=== PATIENT | female | born 1975 | race Caucasian/White ===

== ENCOUNTER 2016-09-05 02:39 | Inpatient (IN) | payer MEDICAID, OTHER ==
[2016-09-05] MEDS ORDERED: SODIUM CHLORIDE 0.9% 1,000 ML IV STA (02:51)
[2016-09-05] MEDS ORDERED: ONDANSETRON 4 MG/2 ML VIAL IVP STA (02:51)
[2016-09-05] MEDS ORDERED: KETOROLAC 30 MG/ML 1 ML VIAL IVP STA (02:52)
--- NOTE | 2016-09-05 03:15 | ED ---
Nausea/Vomiting/Diarrhea HPI - General Source: patient, RN notes reviewed, old records reviewed Mode of arrival: EMS <Sussy Carrasquillo - Last Filed: 09/05/16 04:02> <Kalin Grossman - Last Filed: 09/05/16 06:17> - General Chief complaint: Nausea/Vomiting/Diarrhea Stated complaint: Nausea/Vomiting/Dizziness Time Seen by Provider: 09/05/16 02:42 - History of Present Illness Initial comments: This is a 40-year-old female presenting to the emergency department with chief complaint of severe nausea and vomiting and dizziness for the past 48 hours. Patient reports that she feels extremely ill. She denies any abdominal pain. She does report that she has some back pain. She denies any difficulty urinating or hematuria. She denies any changes in bowel movements including diarrhea or blood in her stools. She denies any blood in her emesis. Patient states that she is currently receiving methadone, states that she's been taking her medication as directed. She denies any other history of drug or alcohol use. Patient reports that she also is feeling suicidal. She reports that she feels extremely depressed because her committed suicide approximately a year ago. Patient denies any specific plan. (Sussy Carrasquillo) - Related Data Home Medications Medication Instructions Recorded Confirmed Gabapentin [Neurontin] 800 mg PO TID 01/02/16 01/04/16 Ibuprofen [Motrin] 800 mg PO TID 01/02/16 01/04/16 Methadone HCl [Methadone Intensol] 90 mg PO DAILY 01/02/16 01/04/16 Albuterol Inhaler [Ventolin Hfa 1 puff INHALATION RT-Q6H PRN 01/04/16 01/04/16 Inhaler] Sulfamethox-Tmp 800-160Mg [Bactrim 2 tab PO Q12HR 01/04/16 01/04/16 Ds] Previous Rx's Medication Instructions Recorded Naproxen 500 mg PO Q12HR PRN #30 tab 01/02/16 Allergies Allergy/AdvReac Type Severity Reaction Status Date / Time codeine Allergy Rash/Hives Verified 01/04/16 08:40 Penicillins Allergy Unknown Verified 01/04/16 08:40 Childhood Review of Systems ROS Other: All systems not noted in ROS Statement are negative. Constitutional: Denies: fever, chills Eyes: Denies: eye pain ENT: Denies: ear pain, throat pain Respiratory: Denies: cough, dyspnea Cardiovascular: Denies: chest pain Endocrine: Denies: fatigue Gastrointestinal: Denies: abdominal pain, nausea Genitourinary: Denies: urgency, dysuria Musculoskeletal: Reports: back pain Skin: Denies: rash, lesions Neurological: Reports: vertigo. Denies: headache Psychiatric: Reports: anxiety, depression, suicidal thoughts Hematological/Lymphatic: Denies: easy bleeding <Sussy Carrasquillo - Last Filed: 09/05/16 04:02> ROS Other: All systems not noted in ROS Statement are negative. <Kalin Grossman - Last Filed: 09/05/16 06:17> ROS Statement: Those systems with pertinent positive or pertinent negative responses have been documented in the HPI. Past Medical History Past Medical History: Asthma, COPD, Fibromyalgia Additional Past Medical History / Comment(s): chronic back pain, anxiety, depressive disorder migraines, heroin use .,several accidental drug overdoses.hep c, IBS, KIDNEY STONE History of Any Multi-Drug Resistant Organisms: MRSA Date of last positivie culture/infection: 01/02/16 MDRO Source:: RIGHT ARM Past Surgical History: Section, Cholecystectomy, Orthopedic Surgery Additional Past Surgical History / Comment(s): d & c's, hand surg,rt wrist surg 3 years ago d/t fx has hardware, tubal ligation, hepatitus c Past Anesthesia/Blood Transfusion Reactions: Previous Problems w/ Anesthesia Additional Past Anesthesia/Blood Transfusion Reaction / Comment(s): unsure of the reaction, CLAUSTERPHOBIA Past Psychological History: ADD/ADHD, Anxiety, Depression, Panic Disorder Additional Psychological History / Comment(s): pt stated she is currently homeless-staying with friends, stated her killed himself 2 weeks ago. staed is depresssed but denies suicidal thougths.has loss of intrest, and has intermittent problems with sleep. Smoking Status: Current every day smoker Past Alcohol Use History: None Reported Additional Past Alcohol Use History / Comment(s): started smoking at age 13, smokes 1 ppd. Past Drug Use History: Heroin Additional Drug Use History / Comment(s): stated last used 3 months ago - Past Family History Mother Family Medical History: Cancer Father Additional Family Medical History / Comment(s): ETOH ABUSE <Sussy Carrasquillo - Last Filed: 09/05/16 04:02> General Exam General appearance: alert, in no apparent distress, other (Patient appears diaphoretic.) Head exam: Present: atraumatic, normocephalic, normal inspection Eye exam: Present: normal appearance, PERRL, EOMI. Absent: scleral icterus, conjunctival injection, periorbital swelling ENT exam: Present: normal exam, normal oropharynx (poor dentition), mucous membranes moist Neck exam: Present: normal inspection. Absent: tenderness, meningismus, lymphadenopathy Respiratory exam: Present: normal lung sounds bilaterally. Absent: respiratory distress, wheezes, rales, rhonchi, stridor Cardiovascular Exam: Present: regular rate, normal rhythm, normal heart sounds. Absent: systolic murmur, diastolic murmur, rubs, gallop, clicks GI/Abdominal exam: Present: soft, normal bowel sounds. Absent: distended, tenderness, guarding, rebound, rigid Extremities exam: Present: normal inspection, full ROM, normal capillary refill. Absent: tenderness, pedal edema, joint swelling, calf tenderness Back exam: Present: normal inspection Neurological exam: Present: alert, oriented X3, CN II-XII intact Psychiatric exam: Present: normal affect, normal mood Skin exam: Present: warm, dry, intact, normal color, diaphoretic. Absent: rash <Sussy Carrasquillo - Last Filed: 09/05/16 04:02> <Kalin Grossman - Last Filed: 09/05/16 06:17> - General Exam Comments Initial Comments: Ill-appearing 40-year-old female. Patient is actively vomiting. (Sussy Carrasquillo) Course <Sussy Carrasquillo - Last Filed: 09/05/16 04:02> <Kalin Grossman - Last Filed: 09/05/16 06:17> Vital Signs 09/05/16 09/05/16 09/05/16 02:43 04:19 04:23 Temperature 96.7 F L Pulse Rate 68 58 L Respiratory 20 18 Rate Blood Pressure 151/77 117/72 O2 Sat by Pulse 100 96 Oximetry 09/05/16 05:37 Temperature Pulse Rate 51 L Respiratory 18 Rate Blood Pressure 141/74 O2 Sat by Pulse 95 Oximetry - Reevaluation(s) Reevaluation #1: 09/05/16 03:31 Patient is reevaluated at this time after receiving nausea medication. Patient reports she is feeling slightly better. She states that she is continued to feel suicidal. She states that her life is worthless at this time. She denies any specific plan, however she did tell the nurse that last week she took a bunch of pills. She states that she did not do this today. She reports that last week when she took the pills she did not want to be seen afterward. ( Sussy Carrasquillo) 09/05/16 04:52 Patient reevaluated and resting comfortably in bed. Patient feels much better. Abdomen is soft and nontender. Patient is medically clear for psychiatric evaluation. (Kalin Grossman) Medical Decision Making - Lab Data Result diagrams: 09/05/16 03:10 09/05/16 03:10 <Sussy Carrasquillo - Last Filed: 09/05/16 04:02> - Lab Data Result diagrams: 09/05/16 03:10 09/05/16 03:10 <Kalin Grossman - Last Filed: 09/05/16 06:17> - Medical Decision Making patient was seen by mental health services, who will admit. (Kalin Grossman) - Lab Data Lab Results 09/05/16 09/05/16 09/05/16 Range/Units 03:10 03:10 03:10 WBC 8.0 (3.8-10.6) k/uL RBC 5.22 (3.80-5.40) m/uL Hgb 15.3 (11.4-16.0) gm/dL Hct 46.1 H (34.0-46.0) % MCV 88.4 (80.0-100.0) fL MCH 29.3 (25.0-35.0) pg MCHC 33.2 (31.0-37.0) g/dL RDW 12.9 (11.5-15.5) % Plt Count 234 (150-450) k/uL Neutrophils % 57 % Lymphocytes % 31 % Monocytes % 7 % Eosinophils % 2 % Basophils % 1 % Neutrophils # 4.6 (1.3-7.7) k/uL Lymphocytes # 2.5 (1.0-4.8) k/uL Monocytes # 0.5 (0-1.0) k/uL Eosinophils # 0.2 (0-0.7) k/uL Basophils # 0.1 (0-0.2) k/uL Sodium 141 (137-145) mmol/L Potassium 3.6 (3.5-5.1) mmol/L Chloride 106 (98-107) mmol/L Carbon Dioxide 26 (22-30) mmol/L Anion Gap 9 mmol/L BUN 9 (7-17) mg/dL Creatinine 0.70 (0.52-1.04) mg/dL Est GFR (MDRD) Af Amer >60 (>60 ml/min/1.73 sqM) Est GFR (MDRD) Non-Af >60 (>60 ml/min/1.73 sqM) Glucose 134 H (74-99) mg/dL Calcium 9.6 (8.4-10.2) mg/dL Total Bilirubin 0.7 (0.2-1.3) mg/dL AST 33 (14-36) U/L ALT 41 (9-52) U/L Alkaline Phosphatase 74 (38-126) U/L Troponin I <0.012 (0.000-0.034) ng/mL Total Protein 8.1 (6.3-8.2) g/dL Albumin 4.1 (3.5-5.0) g/dL Amylase 38 (30-110) U/L Lipase 37 (23-300) U/L 09/05/16 03:16 EKG shows sinus bradycardia ventricular 56 bpm. : 30 ms. QRS duration 92 ms. QT QTc is 474/457 seconds. No evidence of ST elevation or T-wave inversion. No evidence of ventricular arrhythmias. ( Sussy Carrasquillo) Disposition <Sussy Carrasquillo - Last Filed: 09/05/16 04:02> <Kalin Grossman - Last Filed: 09/05/16 06:17> Clinical Impression: Acute vomiting, Depression, Suicidal thoughts Disposition: TRANSFER TO PSYCH HOSP/UNIT
[2016-09-05 03:16] LABS: Basophils # (A) 0.1 k/uL (0-0.2); Basophils % (A) 1 %; CH 30.2; CHCM 34.3; Eosinophils # (A) 0.2 k/uL (0-0.7); Eosinophils % (A) 2 %; HCT 46.1 % (34.0-46.0); HDW 2.48; HGB 15.3 gm/dL (11.4-16.0); Luc # (Auto) 0.24; Luc % (Auto) 3; Lymphocytes # (A) 2.5 k/uL (1.0-4.8); Lymphocytes % (A) 31 %; MCH 29.3 pg (25.0-35.0); MCHC 33.2 g/dL (31.0-37.0); MCV 88.4 fL (80.0-100.0); Mean Platelet Volume 7.1; Monocytes # (A) 0.5 k/uL (0-1.0); Monocytes % (A) 7 %; Neutrophils # (A) 4.6 k/uL (1.3-7.7); Neutrophils % (A) 57 %; RBC 5.22 m/uL (3.80-5.40); RDW 12.9 % (11.5-15.5); WBC (Perox) 7.02
[2016-09-05] MEDS: SODIUM CHLORIDE 0.9% 2,000 ML IV STA (03:17)
[2016-09-05 03:25] LABS: ALT 41 U/L (9-52); AST 33 U/L (14-36); Alkaline Phosphatase 74 U/L (38-126); Amylase 38 U/L (30-110); Anion Gap 9 mmol/L; Blood Urea Nitrogen 9 mg/dL (7-17); Calcium 9.6 mg/dL (8.4-10.2); Carbon Dioxide 26 mmol/L (22-30); Chloride 106 mmol/L (98-107); Glucose 134 mg/dL (74-99); Non-African American GFR(MDRD) >60 (>60 ml/min/1.73 sqM); Potassium 3.6 mmol/L (3.5-5.1); Sodium 141 mmol/L (137-145); Total Bilirubin 0.7 mg/dL (0.2-1.3); Total Protein 8.1 g/dL (6.3-8.2)
[2016-09-05] MEDS ORDERED: METOCLOPRAMIDE 5 MG/ML 2 ML VIAL IVP STA (03:57)
[2016-09-05] MEDS ORDERED: diphenhydrAMINE 50 MG/ML 1 ML VIAL IVP STA (03:58)
--- NOTE | 2016-09-05 04:03 | XR ---
EXAM: XR Chest, 2 Views CLINICAL HISTORY: Reason: pain TECHNIQUE: Frontal and lateral views of the chest. COMPARISON: 03/30/2014 FINDINGS: Lungs: Unremarkable. No consolidation. Pleural space: Unremarkable. No pneumothorax. Heart: Unremarkable. No cardiomegaly. Mediastinum: Unremarkable. Bones/joints: No acute osseous abnormality. Tubes, lines and devices: Telemetry leads overlie the patient. IMPRESSION: No acute cardiopulmonary process.
--- NOTE | 2016-09-05 04:04 | XR ---
EXAM: XR Abdomen, 1 View CLINICAL HISTORY: Reason: pain TECHNIQUE: Frontal supine view of the abdomen/pelvis. COMPARISON: No relevant prior studies available. FINDINGS: Intraperitoneal space: No pneumatosis or pneumoperitoneum. Gastrointestinal tract: Overall paucity of bowel gas. Gas is present in the rectosigmoid colon. No dilation. Bones/joints: No acute fracture or malalignment. Soft tissues: Surgical clips project over the right upper quadrant. IMPRESSION: Nonspecific bowel gas pattern. No pneumatosis or pneumoperitoneum.
[2016-09-05] MEDS ORDERED: MECLIZINE 25 MG TAB PO STA (06:09)
[2016-09-05] MEDS ORDERED: ACETAMINOPHEN TAB 325 MG TAB PO PRN (07:12)
[2016-09-05] MEDS ORDERED: MAGNESIUM HYDROXIDE 2,400 MG/10 ML CUP PO PRN (07:12)
[2016-09-05] MEDS ORDERED: ZIPRASIDONE 20 MG VIAL IM PRN (07:12)
[2016-09-05] MEDS ORDERED: ALBUTEROL INHALER 60 PUFF/8 GM INHALER INHALATION PRN (07:14)
[2016-09-05] MEDS: IBUPROFEN 800 MG TAB PO SCH ×3 (08:38→21:59)
[2016-09-05] MEDS: GABAPENTIN 400 MG CAP PO SCH ×3 (08:38→21:59)
[2016-09-05] MEDS: NICOTINE 14MG/24HR PATCH TRANSDERM SCH (08:39)
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
[2016-09-05] MEDS ORDERED: METHADONE 5 MG TAB PO SCH (14:30)
[2016-09-05] MEDS: MAG HYDROX/AL HYDROX/SIMETH 30 ML CUP PO PRN (16:08)
[2016-09-05] MEDS: IPRATROPIUM-ALBUTEROL 3 ML NEB INHALATION SCH (21:25)
[2016-09-05] MEDS: VENLAFAXINE HCL 50 MG TAB PO SCH (21:58)
[2016-09-06] MEDS: IPRATROPIUM-ALBUTEROL 3 ML NEB INHALATION SCH ×6 (02:00→19:20)
[2016-09-06] MEDS ORDERED: ACETAMINOPHEN TAB 325 MG TAB ONE (03:30)
[2016-09-06] MEDS ORDERED: diphenhydrAMINE 25 MG CAP ONE ×2 (04:43→04:45)
[2016-09-06 05:47] LABS: Appearance,Urine Clear (Clear); Bilirubin,Urine Negative (Negative); Glucose,Urine (UA) Negative (Negative); Ketones,Urine Negative (Negative); Leukocyte Esterase,Urine Negative (Negative); Nitrite,Urine Negative (Negative); PH, Urine 7.5 (5.0-8.0); Protein,Urine Negative (Negative); Specific Gravity,Urine 1.012 (1.001-1.035); UA Billing (MACRO vs. MICRO) CHEM; Urobilinogen,Urine <2.0 mg/dL (<2.0)
[2016-09-06] MEDS ORDERED: diphenhydrAMINE 50 MG CAP PO STA (07:32)
[2016-09-06] MEDS: NICOTINE 14MG/24HR PATCH TRANSDERM SCH (08:05)
[2016-09-06] MEDS: VENLAFAXINE HCL 50 MG TAB PO SCH (08:05)
[2016-09-06] MEDS: GABAPENTIN 400 MG CAP PO SCH ×3 (08:05→20:16)
[2016-09-06] MEDS: IBUPROFEN 800 MG TAB PO SCH ×3 (08:06→22:27)
[2016-09-06] MEDS: METHADONE 10 MG TAB PO SCH (09:06)
[2016-09-06] MEDS: METHADONE 5 MG TAB PO SCH (09:07)
--- NOTE | 2016-09-06 11:48 | CONS ---
DATE OF CONSULTATION: REASON FOR CONSULTATION: Medical management of COPD, asthma and migraine headache. HISTORY OF PRESENT ILLNESS: Ms. Wheeler is a 40-year-old female with a known history of polysubstance abuse on methadone, depression, migraine headaches, COPD/asthma. Came to the ER with complaints of severe nausea and vomiting and dizziness for the past 48 hours prior to admission. Patient says that she feels extremely ill. Otherwise, denied any abdominal pain. No fever. No chills. No dysuria or hematuria. Denied any diarrhea. Denied any hematemesis or melena. Patient says that she is currently receiving methadone from the clinic daily. Patient says that she is also feeling suicidal on admission and is extremely depressed because of her committed suicide approximately about a year ago. Patient otherwise denied any pain, no recent illnesses. No sick contacts at home. REVIEW OF SYSTEMS: CONSTITUTIONAL: No fever. No chills. Patient does have generalized weakness. RESPIRATORY: No cough or sputum production. CARDIOVASCULAR: No chest pain. No short of breath. No leg swelling. ABDOMEN: No nausea, vomiting, abdominal pain currently. No diarrhea. GENITOURINARY: No dysuria, no hematuria. ENDOCRINE: Negative. PSYCHIATRIC: Depressed. SKIN: Negative. All other 14-point review of systems negative except as above. PAST MEDICAL HISTORY: Asthma/COPD, fibromyalgia, chronic back pain, anxiety and depressive disorder. Polysubstance abuse, currently on methadone, migraine headache, several accidental drug overdoses, hepatitis C, IBS and history of renal stones. PAST SURGICAL HISTORY: , cholecystectomy, D&C, hand surgery, right wrist surgery 3 years ago due to a fracture of her hardware, tubal ligation, hepatitis C, ADD/ADHD, anxiety, depression, panic disorder. SOCIAL HISTORY: Patient currently home homeless, staying with friends. Patient currently an everyday smoker; smokes about 2 packs per day, started smoking at age 13. Patient does use heroin, last use about 3 months ago. Denied any alcohol use currently. FAMILY HISTORY: Mother had diabetes mellitus and cancer. Father had heart disease and alcohol abuse. Allergies include CODEINE, PENICILLIN. HOME MEDICATIONS: Neurontin, Motrin, methadone, albuterol inhaler, Bactrim DS and Naprosyn. PHYSICAL EXAMINATION: A 40-year-old female, lying in the bed. Awake, alert, oriented x3, appears to be in no apparent distress. VITALS: Blood pressure is 141/74, pulse is 51, respirations 18, temperature afebrile, pulse ox 97% on room air. HEENT: Atraumatic, normocephalic. Neck is supple. No JVD. CVS EXAM: S1, S2 heard. No murmurs, no gallop, no rub. LUNGS: Bilateral rhonchi positive. Expiratory wheezing positive. Nonlabored breathing. ABDOMEN: Soft, nontender. Bowel sounds present. CANE PILER: Awake, alert, oriented x3. No focal deficit. EXTREMITIES: No edema. Pulses palpable bilaterally. No clubbing or cyanosis. PSYCHIATRIC: Cooperative. SKIN: Patient does have scar markings on both wrists. PSYCHIATRIC: Cooperative, currently is depressed, denied any suicidal ideation. LABORATORY DATA: WBC is 8.0, hemoglobin 15.3, platelets 234, sodium 141, potassium 3. 6, chloride 106, bicarb is 26, BUN 9, creatinine 0.7. Blood sugar 134, calcium 9.6. Liver enzymes are not elevated, lipase 37. IMPRESSION: 1. Nausea, vomiting and diarrhea likely due to withdrawal symptoms from opiates, resolved at this time. 2. Major depression. 3. History of multiple suicide attempts in the past. 4. Polysubstance abuse. 5. Chronic obstructive pulmonary disease/asthma. 6. History of migraine headaches. 7. Fibromyalgia. 8. Hepatitis C. 9. Irritable bowel syndrome. 10. History of renal stone. 11. Patient has chronic back pain. DISCUSSION AND PLAN: Patient will be continued on ( ) for nausea, vomiting, which had improved at this time. Will continue the antidepressant and will start on breathing treatments with DuoNeb and follow up closely. Continue the pain management and bowel regimen and further recommendations based on the clinical course. Patient was advised to follow with the GI clinic for hepatitis C treatment upon discharge.
[2016-09-06] MEDS ORDERED: hydrOXYzine PAMOATE 25 MG CAP PO PRN (14:07)
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
[2016-09-06 17:17] VITALS: BMI 23.3
[2016-09-06] MEDS: VENLAFAXINE HCL 75 MG TAB PO SCH (20:16)
[2016-09-06] MEDS ORDERED: MIRTAZAPINE 15 MG TAB PO SCH (21:00)
[2016-09-07] MEDS: IPRATROPIUM-ALBUTEROL 3 ML NEB INHALATION SCH ×3 (00:32→10:56)
[2016-09-07 07:09] VITALS: BP 130/78; RESP 16; TEMP 97.3
[2016-09-07] MEDS: GABAPENTIN 400 MG CAP PO SCH (08:11)
[2016-09-07] MEDS: VENLAFAXINE HCL 75 MG TAB PO SCH (08:11)
[2016-09-07] MEDS: METHADONE 10 MG TAB PO SCH (08:11)
[2016-09-07] MEDS: IBUPROFEN 800 MG TAB PO SCH (08:13)
[2016-09-07] MEDS: NICOTINE 14MG/24HR PATCH TRANSDERM SCH (08:13)
[2016-09-07] MEDS: METHADONE 5 MG TAB PO SCH (08:13)
[2016-09-07] MEDS: MAG HYDROX/AL HYDROX/SIMETH 30 ML CUP PO PRN (10:06)
--- NOTE | 2016-09-07 10:32 | P.DS ---
Providers Date of admission: 09/05/16 06:22 Expected date of discharge: 09/07/16 Attending physician: Mariely Ceron MD Consults: 09/05/16 07:12 Consult Physician Routine Consulting Provider: Masoud Valdovinos Consult Reason/Comments: H&P and medical follow up Do you want consulting provider notified?: Yes, Notify in am Primary care physician: [facility] Course: The patient was admitted after expressing desire to no longer wanting to live, feeling overwhelmed, dizzy, and vomiting. Patient stated that her life is terrible her living situation is terrible and just felt like she couldn't go on anymore. Has thoughts of suicide, says overdosing or if she could get a gun. She references frequently her who killed himself a year and a half ago, shooting self in a police standoff. Patient states that she has been using heroin/pain pills along with methadone. Reports that she has been sober from heroin for about a year, after a [facility]. Reports she is hopeless, helpless and feels worthless. Depressed and anxious. +suicide, insomnia. HCG negative UDS: +opiates, +barbiturates, +cannabis Patient admitted with suicide precautions. She was started on effexor 50mg bid, tolerated w/o side effects. She began to feel better, thoughts of suicide lessened as she began thinking of her children and how they would suffer to have both parents from suicide. She began to agree to seek other options with desire to become abstinent from opiates (with methadon) and obtained an initial date with [facility]. She also agreed to seek penitentiary at [facility]. She made contact with one of her daughters who will come today for family meeting prior to discharge. MENTAL STATUS EXAM: Patient alert and oriented 3, good eye contact, fair groomed in hospital attire. Speech normal volume, rate and production. Coherent, logical and goal directed thought process. No ZARA, no FOI. No TB/TW/ TI Denied auditory and visual hallucinations. Denied paranoid ideation, delusions or IOR. Memory intact Cognition average Mood neutral, affect full range, decreased intensity congruent with mood. Denies suicidal ideation, denies homicidal ideation. Insight partial; Judgment grossly intact for treatment services IMPRESSIONS: 40-year-old female, single, with a 7 year history of heroin use, severe, one year of sobriety that she recently relapsed on pain pills and heroin. Overwhelmed with her living/economic situation. Depressed, hopeless, helpless, insomnia, anxiety. No psychosis. Suicidal ideation resolved and depressed mood lessened. Sleep improved. She has plans for future. Safe for outpatient treatment. MDD recurrent severe, w/o psychosis Opioid use, severe PLAN: Discharge today Continue Effexor 75mg bid Continue Remeron 15mg for sleep and depression Vistaril for anxiety Pertinent Studies: none Procedures: none Patient Condition at Discharge: Stable Plan - Discharge Summary New Discharge Prescriptions: Gabapentin [Neurontin] 800 mg PO TID #90 cap hydrOXYzine PAMOATE [Vistaril] 25 mg PO Q6HR PRN #90 cap PRN Reason: Agitation Or Acute Anxiety Methadone HCl [Methadone Intensol] 95 mg PO DAILY #1 Mirtazapine [Remeron] 15 mg PO HS #30 tab Nicotine 14Mg/24Hr Patch [Habitrol] 1 patch TRANSDERM DAILY #7 patch Venlafaxine HCl [Effexor] 75 mg PO BID #60 tab Discharge Medication List Ibuprofen [Motrin] 800 mg PO TID 01/02/16 [History] Albuterol Inhaler [Ventolin Hfa Inhaler] 1 puff INHALATION RT-Q6H PRN 01/04/16 [ History] Gabapentin [Neurontin] 800 mg PO TID #90 cap 09/07/16 [Rx] Methadone HCl [Methadone Intensol] 95 mg PO DAILY #1 09/07/16 [Rx] Mirtazapine [Remeron] 15 mg PO HS #30 tab 09/07/16 [Rx] Nicotine 14Mg/24Hr Patch [Habitrol] 1 patch TRANSDERM DAILY #7 patch 09/07/16 [ Rx] Venlafaxine HCl [Effexor] 75 mg PO BID #60 tab 09/07/16 [Rx] hydrOXYzine PAMOATE [Vistaril] 25 mg PO Q6HR PRN #90 cap 09/07/16 [Rx] Follow up Appointment(s)/Referral(s): [facility] [Outside] - 09/08/16 9:00 am (Outpatient for Methadone dosing. See therapist Emely Hunt 09/08/16. [facility] to follow up with patient for inpatient residential treatment. ) Darnell Elizalde MD [Primary Care Provider] - 1-2 days Discharge Disposition: HOME SELF-CARE
[2016-09-07 11:09] VITALS: PULSE 64
== END 2016-09-07 13:14 | disposition home or self-care (01) | DRG 885 ==
LOC: EC 02:39 → 3MHU 06:22
PROVIDERS: ADMIT Psychiatry & Neurology Addiction Medicine; ATTEND Psychiatry & Neurology Addiction Medicine
DX: F33.2 Major depressive disorder, recurrent severe without psychotic features (principal); J44.9 Chronic obstructive pulmonary disease, unspecified; B19.20 Unspecified viral hepatitis C without hepatic coma; F41.0 Panic disorder [episodic paroxysmal anxiety]; G43.909 Migraine, unspecified, not intractable, without status migrainosus; G47.00 Insomnia, unspecified; G89.29 Other chronic pain; K58.9 Irritable bowel syndrome, unspecified; M79.7 Fibromyalgia; Z59.0 Homelessness; Z82.49 Family history of ischemic heart disease and other diseases of the circulatory system; Z87.442 Personal history of urinary calculi; F17.200 Nicotine dependence, unspecified, uncomplicated; Z91.5 Personal history of self-harm; Z88.5 Allergy status to narcotic agent; Z88.0 Allergy status to penicillin; Z81.8 Family history of other mental and behavioral disorders; Z62.810 Personal history of physical and sexual abuse in childhood
CPT/HCPCS: 36415; 71020; 74000; 80053; 80306; 81003; 81025; 82075; 82150; 83690; 84443; 84484; 85025; 93005; 94640

== ENCOUNTER 2017-05-11 22:04 | Emergency (ER) | payer OTHER ==
[2017-05-11] MEDS ORDERED: ACETAMINOPHEN TAB 500 MG TAB PO STA (23:10)
[2017-05-11] MEDS ORDERED: methylPREDNISolone SOD SUCCI 125 MG/2 ML VIAL IV STA (23:10)
[2017-05-11] MEDS ORDERED: SODIUM CHLORIDE 0.9% 500 ML IV STA (23:10)
[2017-05-11] MEDS ORDERED: IPRATROPIUM-ALBUTEROL 3 ML NEB INHALATION STA (23:10)
--- NOTE | 2017-05-11 23:56 | ED ---
URI HPI - General Chief Complaint: Upper Respiratory Infection Stated Complaint: SOB Time Seen by Provider: 05/11/17 22:49 Source: patient, RN notes reviewed, old records reviewed Mode of arrival: ambulatory Limitations: no limitations - History of Present Illness Initial Comments: This is a 41 year old female presents with cough, upper respiratory congestion for 1 week. She is a smoker, and reports with decreased smoking. Patient is here with her friend also coming in for similar complaints. Patient has had no fever. She does report that she's had a using her inhalers but she has not been sick regularly. Patient has had no vomiting, chest pain, abdominal pain, headache, sore throat. She does complain of some mild right-sided ear pain. She has been taking [id number] Claritin decongestant medicine. She states that she's had little relief. She does state that she is continuing to smoke.Patient denies any recent fever, chills, chest pain, back pain, abdominal pain, nausea vomiting, numbness or tingling, dysuria or hematuria, constipation or diarrhea, headaches or visual changes, or any other current symptoms - Related Data Home Medications Medication Instructions Recorded Confirmed Ibuprofen [Motrin] 800 mg PO TID 01/02/16 02/14/17 Albuterol Inhaler [Ventolin Hfa 1 puff INHALATION RT-Q6H PRN 01/04/16 02/14/17 Inhaler] Butalb/Acetaminophen/Caffeine 1 tab PO TID 02/14/17 02/14/17 [Fioricet 50-325-40] Carisoprodol [Soma] 1 tab PO TID 02/14/17 02/14/17 Previous Rx's Medication Instructions Recorded Gabapentin [Neurontin] 800 mg PO TID #90 cap 09/07/16 Methadone HCl [Methadone Intensol] 95 mg PO DAILY #1 09/07/16 Albuterol Inhaler [Ventolin Hfa 1 - 2 puff INHALATION Q6HR PRN #1 05/12/17 Inhaler] inhaler Levofloxacin [Levaquin] 750 mg PO DAILY #5 tab 05/12/17 Promethazine/Dextromethorphan 5 ml PO TID #120 ml 05/12/17 [Phenergan DM Syrup] predniSONE 50 mg PO DAILY #5 tablet 05/12/17 Allergies Allergy/AdvReac Type Severity Reaction Status Date / Time codeine Allergy Rash/Hives Verified 02/14/17 13:34 Penicillins Allergy Unknown Verified 02/14/17 13:34 Childhood Review of Systems ROS Statement: Those systems with pertinent positive or pertinent negative responses have been documented in the HPI. ROS Other: All systems not noted in ROS Statement are negative. Past Medical History Past Medical History: Asthma, COPD, Fibromyalgia Additional Past Medical History / Comment(s): chronic back pain, anxiety, depressive disorder migraines, heroin use .,several accidental drug overdoses.hep c, IBS, KIDNEY STONE History of Any Multi-Drug Resistant Organisms: MRSA Date of last positivie culture/infection: 01/02/16 MDRO Source:: RIGHT ARM Past Surgical History: Section, Cholecystectomy, Orthopedic Surgery Additional Past Surgical History / Comment(s): d & c's, hand surg,rt wrist surg 3 years ago d/t fx has hardware, tubal ligation, hepatitus c Past Anesthesia/Blood Transfusion Reactions: Previous Problems w/ Anesthesia Additional Past Anesthesia/Blood Transfusion Reaction / Comment(s): unsure of the reaction, CLAUSTERPHOBIA Past Psychological History: ADD/ADHD, Anxiety, Depression, Panic Disorder Smoking Status: Current every day smoker Past Alcohol Use History: Rare Past Drug Use History: Marijuana - Past Family History Mother Family Medical History: Cancer Father Additional Family Medical History / Comment(s): ETOH ABUSE General Exam - General Exam Comments Initial Comments: This is a 41 year old female. Limitations: no limitations General appearance: alert, in no apparent distress Head exam: Present: atraumatic, normocephalic, normal inspection Eye exam: Present: normal appearance, PERRL, EOMI. Absent: scleral icterus, conjunctival injection, periorbital swelling ENT exam: Present: normal exam, mucous membranes moist Neck exam: Present: normal inspection. Absent: tenderness, meningismus, lymphadenopathy Respiratory exam: Present: normal lung sounds bilaterally, wheezes (bilateral wheezing ). Absent: respiratory distress, rales, rhonchi, stridor Cardiovascular Exam: Present: regular rate, normal rhythm, normal heart sounds. Absent: systolic murmur, diastolic murmur, rubs, gallop, clicks GI/Abdominal exam: Present: soft, normal bowel sounds. Absent: distended, tenderness, guarding, rebound, rigid Extremities exam: Present: normal inspection, full ROM, normal capillary refill. Absent: tenderness, pedal edema, joint swelling, calf tenderness Back exam: Present: normal inspection Psychiatric exam: Present: normal affect, normal mood Skin exam: Present: warm, dry, intact, normal color. Absent: rash Course Vital Signs 05/11/17 05/11/17 05/11/17 22:21 23:29 23:48 Temperature 97.4 F L Pulse Rate 94 91 98 Respiratory 16 Rate Blood Pressure 129/76 O2 Sat by Pulse 95 Oximetry 05/12/17 01:12 Temperature 97.9 F Pulse Rate 68 Respiratory 18 Rate Blood Pressure 110/70 O2 Sat by Pulse 96 Oximetry Medical Decision Making - Medical Decision Making This patient is a 41-year-old female presents with 1 week of increased coughing of respiratory congestion. Also complains of some mild right ear pain. Patient has a history of a heavy smoker. At the same patient does have significant wheezing and rhonchi noted throughout bilateral lung hummel. Patient was given a double DuoNeb treatment and does have significant improvement. There is some minor wheezing still noted however glucose is patient's baseline she is a heavy smoker and diagnosed with COPD. At this time I will give the patient IV steroids. Oxygen saturations are well at 98-99% on room air. Patient's chest x-ray was reviewed and negative for any acute process. No focal pneumonia. At this time. Treat patient for COPD exacerbation with steroids, Levaquin, albuterol inhaler, and cough syrup. Discussed the importance of following up with primary care provider. She does plan to go to an appointment tomorrow. Patient understands treatment plan will comply. Return parameters were discussed. - Lab Data Result diagrams: 05/12/17 00:00 Lab Results 05/11/17 05/12/17 Range/Units 23:47 00:00 WBC 9.7 (3.8-10.6) k/uL RBC 5.00 (3.80-5.40) m/uL Hgb 14.6 (11.4-16.0) gm/dL Hct 45.4 (34.0-46.0) % MCV 90.9 (80.0-100.0) fL MCH 29.2 (25.0-35.0) pg MCHC 32.1 (31.0-37.0) g/dL RDW 13.2 (11.5-15.5) % Plt Count 378 (150-450) k/uL Neutrophils % 62 % Lymphocytes % 28 % Monocytes % 5 % Eosinophils % 1 % Basophils % 1 % Neutrophils # 6.0 (1.3-7.7) k/uL Lymphocytes # 2.7 (1.0-4.8) k/uL Monocytes # 0.4 (0-1.0) k/uL Eosinophils # 0.1 (0-0.7) k/uL Basophils # 0.1 (0-0.2) k/uL Influenza Type A RNA Not Detected (Not Detectd) Influenza Type B (PCR) Not Detected (Not Detectd) - Radiology Data Radiology results: report reviewed This x-ray was reviewed and negative for any acute process. Disposition Clinical Impression: COPD exacerbation Disposition: HOME SELF-CARE Condition: Good Instructions: COPD (Chronic Obstructive Pulmonary Disease) (ED) Additional Instructions: Patient is advised to follow up with PCP within next 24 hours. Patient should take antibiotics and prescription. Patient should return to ED if any alarming signs or symptoms occur. Prescriptions: Albuterol Inhaler [Ventolin Hfa Inhaler] 1 - 2 puff INHALATION Q6HR PRN #1 inhaler PRN Reason: Shortness Of Breath Levofloxacin [Levaquin] 750 mg PO DAILY #5 tab predniSONE 50 mg PO DAILY #5 tablet Promethazine/Dextromethorphan [Phenergan DM Syrup] 5 ml PO TID #120 ml Referrals: Darnell Elizalde MD [Primary Care Provider] - 1-2 days Time of Disposition: 00:49
[2017-05-12 00:15] LABS: Basophils # (A) 0.1 k/uL (0-0.2); Basophils % (A) 1 %; Eosinophils # (A) 0.1 k/uL (0-0.7); Eosinophils % (A) 1 %; HCT 45.4 % (34.0-46.0); HGB 14.6 gm/dL (11.4-16.0); Lymphocytes # (A) 2.7 k/uL (1.0-4.8); Lymphocytes % (A) 28 %; MCH 29.2 pg (25.0-35.0); MCHC 32.1 g/dL (31.0-37.0); MCV 90.9 fL (80.0-100.0); Mean Platelet Volume 6.9; Monocytes # (A) 0.4 k/uL (0-1.0); Monocytes % (A) 5 %; Neutrophils % (A) 62 %; Platelet Count 378 k/uL (150-450); RDW 13.2 % (11.5-15.5); WBC 9.7 k/uL (3.8-10.6)
--- NOTE | 2017-05-12 00:33 | XR ---
EXAMINATION TYPE: XR chest 2V DATE OF EXAM: 05/12/2017 COMPARISON: NONE HISTORY: Cough TECHNIQUE: Frontal and lateral views of the chest are obtained. FINDINGS: Heart and mediastinum are normal. Lungs are clear. Diaphragm is normal. Bony thorax appear s normal. IMPRESSION: Normal chest. No change.
[2017-05-12] MEDS ORDERED: LEVOFLOXACIN 500 MG TAB PO STA (00:50)
[2017-05-12 01:14] VITALS: BP 110/70; PULSE 68; RESP 18; TEMP 97.9
== END 2017-05-12 01:13 | disposition home or self-care (01) ==
LOC: EC 22:04
DX: J44.1 Chronic obstructive pulmonary disease with (acute) exacerbation (principal); H92.01 Otalgia, right ear; G89.29 Other chronic pain; F41.9 Anxiety disorder, unspecified; F17.200 Nicotine dependence, unspecified, uncomplicated; Z79.1 Long term (current) use of non-steroidal anti-inflammatories (NSAID); Z79.899 Other long term (current) drug therapy; Z88.0 Allergy status to penicillin; Z88.5 Allergy status to narcotic agent; Z86.69 Personal history of other diseases of the nervous system and sense organs; Z86.14 Personal history of Methicillin resistant Staphylococcus aureus infection
CPT/HCPCS: 99284; 96374; 36415; 94640; 85025; 87502; 71046; J2930

== ENCOUNTER 2018-04-23 14:49 | Emergency (ER) | payer OTHER ==
[2018-04-23 14:54] VITALS: BP 108/68; PULSE 82; RESP 20; TEMP 98.1
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
[2018-04-23 16:25] LABS: Basophils % (A) 1 %; Eosinophils # (A) 0.2 k/uL (0-0.7); Eosinophils % (A) 4 %; HCT 36.2 % (34.0-46.0); HGB 11.8 gm/dL (11.4-16.0); Lymphocytes # (A) 1.5 k/uL (1.0-4.8); Lymphocytes % (A) 30 %; MCH 32.2 pg (25.0-35.0); MCHC 32.7 g/dL (31.0-37.0); MCV 98.5 fL (80.0-100.0); Mean Platelet Volume 7.7; Monocytes # (A) 0.2 k/uL (0-1.0); Monocytes % (A) 5 %; Neutrophils % (A) 60 %; Platelet Count 206 k/uL (150-450); RBC 3.67 m/uL (3.80-5.40)
[2018-04-23 16:36] LABS: Appearance,Urine Clear (Clear); Bilirubin,Urine Negative (Negative); Blood,Urine Negative (Negative); Color,Urine Yellow; Glucose,Urine (UA) Negative (Negative); Ketones,Urine Negative (Negative); Leukocyte Esterase,Urine Negative (Negative); Nitrite,Urine Negative (Negative); PH, Urine 6.5 (5.0-8.0); Protein,Urine Negative (Negative); Specific Gravity,Urine 1.009 (1.001-1.035); Urobilinogen,Urine <2.0 mg/dL (<2.0)
[2018-04-23 16:36] LABS: ALT 49 U/L (9-52); AST 48 U/L (14-36); Albumin 3.5 g/dL (3.5-5.0); Alkaline Phosphatase 85 U/L (38-126); Anion Gap 8 mmol/L; Blood Urea Nitrogen 7 mg/dL (7-17); Calcium 8.5 mg/dL (8.4-10.2); Carbon Dioxide 21 mmol/L (22-30); Chloride 109 mmol/L (98-107); Glucose 96 mg/dL (74-99); Potassium 4.1 mmol/L (3.5-5.1); Sodium 138 mmol/L (137-145); Total Bilirubin 0.4 mg/dL (0.2-1.3); Total Protein 6.6 g/dL (6.3-8.2)
--- NOTE | 2018-04-23 17:30 | CT ---
EXAMINATION TYPE: CT brain gregory wo con DATE OF EXAM: 04/23/2018 COMPARISON: 03/30/2014 HISTORY: 42-year-old female with pain after Recent fall. CT DLP: 1346.3 mGycm Automated exposure control for dose reduction was used. Technique: Examination of the head was done in axial plane without intravenous contrast. Coronal and sagittal reconstructions performed. CT of the cervical spine was obtained in axial plane without intravenous injection of contrast mater ial. Coronal and sagittal reformatted images were obtained from the axial views for evaluation of f ractures, spinal alignment and canal. FINDINGS: Head: There is no evidence of acute intracranial hemorrhage, acute ischemic changes, mass, mass-effect, or extra-axial fluid collection. There is no effacement of cerebral sulci or basal subarachnoid cister ns. There is no hydrocephalus. There is no midline shift. Conner-white matter distinction is preserv ed. Partially visualized comminuted fracture, mildly displaced involving the right nasal bone. Mastoid ai r cells well pneumatized. Orbits and globes appear intact. Cervical spine: Reversal of the normal cervical lordosis. The alignment of the cervical spine is normal on coronal an d reformatted images. There is no cranial vertebral abnormality. Fracture of the cervical spine is no t seen. Assessment of the spinal canal from C5-C6 and below is limited due to artifact from the patie nt's shoulders. Mild degenerative disc disease C5-C6. Sagittal and coronal reformatted images confirm above findings. COMBINED IMPRESSION: 1. No acute intracranial abnormality seen. 2. No acute fracture or malalignment of the cervical spine. 3. Partially visualized comminuted and mildly displaced fractures of the right nasal bone.
[2018-04-23] MEDS ORDERED: SODIUM CHLORIDE 0.9% 1,000 ML IV STA (17:38)
[2018-04-23] MEDS ORDERED: ACETAMINOPHEN TAB 325 MG TAB PO STA (17:45)
--- NOTE | 2018-04-23 17:45 | XR ---
EXAMINATION TYPE: XR nasal bone DATE OF EXAM: 04/23/2018 COMPARISON: CT brain same day HISTORY: 42-year-old female with pain after fall TECHNIQUE: 3 views FINDINGS: A small minimally angulated fracture of the distal aspect of the right nasal bone is subtly apparent. Known right-sided nasal bone fracture better seen on CT of the same day. IMPRESSION: A small, minimally angulated fracture of the distal aspect of the right nasal bone. Mildly displaced, comminuted fracture of the right nasal bone was better seen on the CT of the brain.
--- NOTE | 2018-04-23 17:46 | XR ---
EXAMINATION TYPE: XR chest 2V DATE OF EXAM: 04/23/2018 COMPARISON: 05/12/2017 HISTORY: 42-year-old female with pain TECHNIQUE: PA and lateral views FINDINGS: The heart is normal size. Aorta and pulmonary vasculature within normal limits. Peribronchial cuffing . No consolidation or pleural effusion. IMPRESSION: Some peribronchial cuffing may represent bronchitis or asthma. Otherwise, no acute process seen.
== END 2018-04-23 18:56 | disposition home or self-care (01) ==
LOC: EC 14:49
DX: S71.112A Laceration without foreign body, left thigh, initial encounter (principal); S02.2XXA Fracture of nasal bones, initial encounter for closed fracture; R74.0 Nonspecific elevation of levels of transaminase and lactic acid dehydrogenase [LDH]; R05 Cough; J44.9 Chronic obstructive pulmonary disease, unspecified; M79.7 Fibromyalgia; F17.200 Nicotine dependence, unspecified, uncomplicated; Z86.14 Personal history of Methicillin resistant Staphylococcus aureus infection; Z79.1 Long term (current) use of non-steroidal anti-inflammatories (NSAID); Z79.899 Other long term (current) drug therapy; Z88.5 Allergy status to narcotic agent; Z88.0 Allergy status to penicillin; W19.XXXA Unspecified fall, initial encounter; Y93.89 Activity, other specified; Y92.009 Unspecified place in unspecified non-institutional (private) residence as the place of occurrence of the external cause
CPT/HCPCS: 36415; 70160; 70450; 71046; 72125; 80053; 81003; 81025; 83605; 84484; 85025; 85379; 87040; 99284

== ENCOUNTER 2018-08-31 02:45 | Inpatient (IN) | payer OTHER ==
[2018-08-31] MEDS ORDERED: SODIUM CHLORIDE 0.9% 1,000 ML IV STA (02:52)
[2018-08-31 03:11] LABS: ABG Base Excess -21.9 mmol/L; ABG Oxygen Saturation 87.3 % (94-97); ABG PCO2 38 mmHg (35-45); ABG PO2 78 mmHg (83-108); ABG TCO2 11 mmol/L (19-24)
[2018-08-31 03:17] LABS: ABG HCO3 9 mmol/L (21-25)
[2018-08-31 03:27] LABS: Glucose,Whole Blood 106 mg/dL (75-99)
--- NOTE | 2018-08-31 03:31 | ED ---
Overdose HPI - General Stated Complaint: unresponsive Time Seen by Provider: 08/31/18 02:47 Source: EMS Mode of arrival: EMS Limitations: altered mental status - History of Present Illness Initial Comments: This patient is a 42-year-old woman brought by EMS for suspected overdose. EMS was called for personally unresponsive, they were told patient had previously used heroin. They administered Narcan, also checked and it checked in the low blood sugar was low they gave dextrose. Patient did not become responsive therefore intubated and brought here. They do note that drug paraphernalia was observed on the scene. On arrival not able to obtain any history from patient. MD Complaint: accidental overdose Context: Accidental Overdose: wanted to get high - Related Data Home Medications Medication Instructions Recorded Confirmed Gabapentin [Neurontin] 800 mg PO TID 08/31/18 08/31/18 Allergies Allergy/AdvReac Type Severity Reaction Status Date / Time codeine Allergy Rash/Hives Verified 08/31/18 02:54 Penicillins Allergy Unknown Verified 08/31/18 02:54 Childhood Review of Systems ROS Statement: Those systems with pertinent positive or pertinent negative responses have been documented in the HPI. ROS Other: All systems not noted in ROS Statement are negative. Limitations: ROS unobtainable due to patients medical condition Past Medical History Past Medical History: Asthma, COPD, Fibromyalgia Additional Past Medical History / Comment(s): chronic back pain, anxiety,depressive disorder migraines, heroin use .,several accidental drug overdoses.hep c, IBS, KIDNEY STONE History of Any Multi-Drug Resistant Organisms: MRSA Date of last positivie culture/infection: 01/02/16 MDRO Source:: RIGHT ARM Past Surgical History: Section, Cholecystectomy, Orthopedic Surgery Additional Past Surgical History / Comment(s): d & c's, hand surg,rt wrist surg 3 years ago d/t fx has hardware, tubal ligation, hepatitus c Past Anesthesia/Blood Transfusion Reactions: Previous Problems w/ Anesthesia Additional Past Anesthesia/Blood Transfusion Reaction / Comment(s): unsure of the reaction, CLAUSTERPHOBIA Past Psychological History: ADD/ADHD, Anxiety, Depression, Panic Disorder Smoking Status: Current every day smoker Past Alcohol Use History: Rare Past Drug Use History: Marijuana - Past Family History Mother Family Medical History: Cancer Father Additional Family Medical History / Comment(s): ETOH ABUSE General Exam Limitations: altered mental status General appearance: obtunded Head exam: Present: atraumatic, normocephalic Eye exam: Present: PERRL. Absent: scleral icterus, conjunctival injection ENT exam: Present: mucous membranes dry, other (Endotracheal tube present with white blood) Neck exam: Present: normal inspection, other (No evidence of trauma). Absent: tenderness Respiratory exam: Present: rhonchi, other (The patient is making respiratory efforts. There are scattered rhonchi with bagging.). Absent: wheezes, rales Cardiovascular Exam: Present: normal rhythm, tachycardia (Rate approximately 140 bpm), normal heart sounds. Absent: systolic murmur, diastolic murmur, rubs, gallop GI/Abdominal exam: Present: soft. Absent: distended, tenderness, guarding, rebound, rigid, mass, pulsatile mass, hernia Extremities exam: Present: normal inspection, normal capillary refill. Absent: pedal edema, calf tenderness Back exam: Present: normal inspection Neurological exam: Present: altered, other (The patient unresponsive. However during the initial assessment she does occasionally attempt to grasp that the endotracheal tube.) Skin exam: Present: warm, dry, intact, normal color, other (He'll tracks presents) Course Vital Signs 08/31/18 08/31/18 08/31/18 02:48 03:15 03:30 Temperature 97.4 F L Pulse Rate 140 H 140 H 138 H Respiratory 13 38 H 38 H Rate Blood Pressure 120/92 97/83 87/58 O2 Sat by Pulse 94 L 86 L 87 L Oximetry 08/31/18 08/31/18 08/31/18 03:45 04:00 04:29 Temperature 99.6 F Pulse Rate 137 H 120 H Respiratory 39 H 38 H Rate Blood Pressure 101/91 87/45 O2 Sat by Pulse 84 L 98 Oximetry 08/31/18 08/31/18 08/31/18 04:30 04:45 05:00 Temperature Pulse Rate 134 H 133 H 131 H Respiratory 37 H 38 H 38 H Rate Blood Pressure 53/33 65/21 86/52 O2 Sat by Pulse 86 L 81 L 80 L Oximetry 08/31/18 08/31/18 08/31/18 05:15 05:37 06:00 Temperature Pulse Rate 133 H 130 H 124 H Respiratory 36 H 30 H 36 H Rate Blood Pressure 83/45 194/136 229/207 O2 Sat by Pulse 88 L 91 L 87 L Oximetry Procedures - Central Line Placement Left Femoral Consent Obtained: emergent situation Patient Placed on Monitor/Pulse Ox: Yes Prep: mask, gown, gloves Central Line Prep: Chlorhexidine scrub, sterile drapes applied Local Anesthesia Used: Lidocaine 1% Central Line Lumen Inserted: triple Bloods Obtained for Lab: Yes Central Line Position: good blood return, all ports aspirated, flushed, capped, sutured in place with 3-0 nylon Dressing Applied: Tegaderm Patient Tolerated Procedure: well, no complications Complications: none Medical Decision Making - Lab Data Result diagrams: 08/31/18 03:20 08/31/18 03:20 Lab Results 08/31/18 08/31/18 08/31/18 Range/Units 02:48 03:08 03:20 WBC (3.8-10.6) k/uL RBC (3.80-5.40) m/uL Hgb (11.4-16.0) gm/dL Hct (34.0-46.0) % MCV (80.0-100.0) fL MCH (25.0-35.0) pg MCHC (31.0-37.0) g/dL RDW (11.5-15.5) % Plt Count (150-450) k/uL Neutrophils % (Manual) % Band Neutrophils % % Lymphocytes % (Manual) % Monocytes % (Manual) % Eosinophils % (Manual) % Myelocytes % % Neutrophils # (Manual) (1.3-7.7) k/uL Lymphocytes # (Manual) (1.0-4.8) k/uL Monocytes # (Manual) (0-1.0) k/uL Eosinophils # (Manual) (0-0.7) k/uL Myelocytes # (Manual) (0) k/uL Nucleated RBCs (0-0) /100 WBC Manual Slide Review Toxic Vacuolation Large Platelets Hypochromasia Anisocytosis Sample Site rfem ABG pH 7.00 L* (7.35-7.45) ABG pCO2 38 (35-45) mmHg ABG pO2 78 L (83-108) mmHg ABG HCO3 9 L* (21-25) mmol/L ABG Total CO2 11 L (19-24) mmol/L ABG O2 Saturation 87.3 L (94-97) % ABG Base Excess -21.9 mmol/L Hussein Test Yes FiO2 100 % Sodium 136 L (137-145) mmol/L Potassium 5.2 H (3.5-5.1) mmol/L Chloride 104 (98-107) mmol/L Carbon Dioxide 9 L* (22-30) mmol/L Anion Gap 23 mmol/L BUN 54 H (7-17) mg/dL Creatinine 4.76 H (0.52-1.04) mg/dL Est GFR (CKD-EPI)AfAm 12 (>60 ml/min/1.73 sqM) Est GFR (CKD-EPI)NonAf 10 (>60 ml/min/1.73 sqM) Glucose 97 (74-99) mg/dL POC Glucose (mg/dL) 106 H (75-99) mg/dL POC Glu Vault Cashier ID Quynh Weaver Lactic Ac Sepsis Rflx Plasma Lactic Acid Iron (0.7-2.0) mmol/L Calcium 9.0 (8.4-10.2) mg/dL Total Bilirubin 1.1 (0.2-1.3) mg/dL AST 97 H (14-36) U/L ALT 35 (9-52) U/L Alkaline Phosphatase 172 H (38-126) U/L Troponin I (0.000-0.034) ng/mL Total Protein 6.7 (6.3-8.2) g/dL Albumin 3.0 L (3.5-5.0) g/dL Urine HCG, Qual (Not Detectd) Urine Opiates Screen (NotDetected) Ur Oxycodone Screen (NotDetected) Urine Methadone Screen (NotDetected) Ur Propoxyphene Screen (NotDetected) Acetaminophen <10.0 ug/mL Ur Barbiturates Screen (NotDetected) U Tricyclic Antidepress (NotDetected) Ur Phencyclidine Scrn (NotDetected) Ur Amphetamines Screen (NotDetected) U Methamphetamines Scrn (NotDetected) U Benzodiazepines Scrn (NotDetected) Urine Cocaine Screen (NotDetected) U Marijuana (THC) Screen (NotDetected) Serum Alcohol <10 mg/dL 08/31/18 08/31/18 08/31/18 Range/Units 03:20 03:20 03:20 WBC 25.0 H (3.8-10.6) k/uL RBC 4.26 (3.80-5.40) m/uL Hgb 11.6 (11.4-16.0) gm/dL Hct 38.8 (34.0-46.0) % MCV 90.9 (80.0-100.0) fL MCH 27.2 (25.0-35.0) pg MCHC 29.9 L (31.0-37.0) g/dL RDW 16.2 H (11.5-15.5) % Plt Count 123 L (150-450) k/uL Neutrophils % (Manual) 74 % Band Neutrophils % 12 % Lymphocytes % (Manual) 6 % Monocytes % (Manual) 8 % Eosinophils % (Manual) 1 % Myelocytes % 1 % Neutrophils # (Manual) 21.50 H (1.3-7.7) k/uL Lymphocytes # (Manual) 1.50 (1.0-4.8) k/uL Monocytes # (Manual) 2.00 H (0-1.0) k/uL Eosinophils # (Manual) 0.25 (0-0.7) k/uL Myelocytes # (Manual) 0.25 H (0) k/uL Nucleated RBCs 0 (0-0) /100 WBC Manual Slide Review Performed Toxic Vacuolation Present Large Platelets Present Hypochromasia Marked Anisocytosis Slight Sample Site ABG pH (7.35-7.45) ABG pCO2 (35-45) mmHg ABG pO2 (83-108) mmHg ABG HCO3 (21-25) mmol/L ABG Total CO2 (19-24) mmol/L ABG O2 Saturation (94-97) % ABG Base Excess mmol/L Hussein Test FiO2 % Sodium (137-145) mmol/L Potassium (3.5-5.1) mmol/L Chloride (98-107) mmol/L Carbon Dioxide (22-30) mmol/L Anion Gap mmol/L BUN (7-17) mg/dL Creatinine (0.52-1.04) mg/dL Est GFR (CKD-EPI)AfAm (>60 ml/min/1.73 sqM) Est GFR (CKD-EPI)NonAf (>60 ml/min/1.73 sqM) Glucose (74-99) mg/dL POC Glucose (mg/dL) (75-99) mg/dL POC Glu Vault Cashier ID Lactic Ac Sepsis Rflx Plasma Lactic Acid Iron 9.6 H* (0.7-2.0) mmol/L Calcium (8.4-10.2) mg/dL Total Bilirubin (0.2-1.3) mg/dL AST (14-36) U/L ALT (9-52) U/L Alkaline Phosphatase (38-126) U/L Troponin I 0.169 H* (0.000-0.034) ng/mL Total Protein (6.3-8.2) g/dL Albumin (3.5-5.0) g/dL Urine HCG, Qual (Not Detectd) Urine Opiates Screen (NotDetected) Ur Oxycodone Screen (NotDetected) Urine Methadone Screen (NotDetected) Ur Propoxyphene Screen (NotDetected) Acetaminophen ug/mL Ur Barbiturates Screen (NotDetected) U Tricyclic Antidepress (NotDetected) Ur Phencyclidine Scrn (NotDetected) Ur Amphetamines Screen (NotDetected) U Methamphetamines Scrn (NotDetected) U Benzodiazepines Scrn (NotDetected) Urine Cocaine Screen (NotDetected) U Marijuana (THC) Screen (NotDetected) Serum Alcohol mg/dL 08/31/18 08/31/18 08/31/18 Range/Units 03:39 03:39 04:00 WBC (3.8-10.6) k/uL RBC (3.80-5.40) m/uL Hgb (11.4-16.0) gm/dL Hct (34.0-46.0) % MCV (80.0-100.0) fL MCH (25.0-35.0) pg MCHC (31.0-37.0) g/dL RDW (11.5-15.5) % Plt Count (150-450) k/uL Neutrophils % (Manual) % Band Neutrophils % % Lymphocytes % (Manual) % Monocytes % (Manual) % Eosinophils % (Manual) % Myelocytes % % Neutrophils # (Manual) (1.3-7.7) k/uL Lymphocytes # (Manual) (1.0-4.8) k/uL Monocytes # (Manual) (0-1.0) k/uL Eosinophils # (Manual) (0-0.7) k/uL Myelocytes # (Manual) (0) k/uL Nucleated RBCs (0-0) /100 WBC Manual Slide Review Toxic Vacuolation Large Platelets Hypochromasia Anisocytosis Sample Site ABG pH (7.35-7.45) ABG pCO2 (35-45) mmHg ABG pO2 (83-108) mmHg ABG HCO3 (21-25) mmol/L ABG Total CO2 (19-24) mmol/L ABG O2 Saturation (94-97) % ABG Base Excess mmol/L Hussein Test FiO2 % Sodium (137-145) mmol/L Potassium (3.5-5.1) mmol/L Chloride (98-107) mmol/L Carbon Dioxide (22-30) mmol/L Anion Gap mmol/L BUN (7-17) mg/dL Creatinine (0.52-1.04) mg/dL Est GFR (CKD-EPI)AfAm (>60 ml/min/1.73 sqM) Est GFR (CKD-EPI)NonAf (>60 ml/min/1.73 sqM) Glucose (74-99) mg/dL POC Glucose (mg/dL) (75-99) mg/dL POC Glu Vault Cashier ID Lactic Ac Sepsis Rflx Y Plasma Lactic Acid Iron (0.7-2.0) mmol/L Calcium (8.4-10.2) mg/dL Total Bilirubin (0.2-1.3) mg/dL AST (14-36) U/L ALT (9-52) U/L Alkaline Phosphatase (38-126) U/L Troponin I (0.000-0.034) ng/mL Total Protein (6.3-8.2) g/dL Albumin (3.5-5.0) g/dL Urine HCG, Qual Not Detected (Not Detectd) Urine Opiates Screen Detected H (NotDetected) Ur Oxycodone Screen Not Detected (NotDetected) Urine Methadone Screen Not Detected (NotDetected) Ur Propoxyphene Screen Not Detected (NotDetected) Acetaminophen ug/mL Ur Barbiturates Screen Detected H (NotDetected) U Tricyclic Antidepress Not Detected (NotDetected) Ur Phencyclidine Scrn Not Detected (NotDetected) Ur Amphetamines Screen Detected H (NotDetected) U Methamphetamines Scrn Detected H (NotDetected) U Benzodiazepines Scrn Detected H (NotDetected) Urine Cocaine Screen Detected H (NotDetected) U Marijuana (THC) Screen Detected H (NotDetected) Serum Alcohol mg/dL 08/31/18 08/31/18 08/31/18 Range/Units 04:50 05:24 05:46 WBC (3.8-10.6) k/uL RBC (3.80-5.40) m/uL Hgb (11.4-16.0) gm/dL Hct (34.0-46.0) % MCV (80.0-100.0) fL MCH (25.0-35.0) pg MCHC (31.0-37.0) g/dL RDW (11.5-15.5) % Plt Count (150-450) k/uL Neutrophils % (Manual) % Band Neutrophils % % Lymphocytes % (Manual) % Monocytes % (Manual) % Eosinophils % (Manual) % Myelocytes % % Neutrophils # (Manual) (1.3-7.7) k/uL Lymphocytes # (Manual) (1.0-4.8) k/uL Monocytes # (Manual) (0-1.0) k/uL Eosinophils # (Manual) (0-0.7) k/uL Myelocytes # (Manual) (0) k/uL Nucleated RBCs (0-0) /100 WBC Manual Slide Review Toxic Vacuolation Large Platelets Hypochromasia Anisocytosis Sample Site ABG pH (7.35-7.45) ABG pCO2 (35-45) mmHg ABG pO2 (83-108) mmHg ABG HCO3 (21-25) mmol/L ABG Total CO2 (19-24) mmol/L ABG O2 Saturation (94-97) % ABG Base Excess mmol/L Hussein Test FiO2 % Sodium (137-145) mmol/L Potassium (3.5-5.1) mmol/L Chloride (98-107) mmol/L Carbon Dioxide (22-30) mmol/L Anion Gap mmol/L BUN (7-17) mg/dL Creatinine (0.52-1.04) mg/dL Est GFR (CKD-EPI)AfAm (>60 ml/min/1.73 sqM) Est GFR (CKD-EPI)NonAf (>60 ml/min/1.73 sqM) Glucose (74-99) mg/dL POC Glucose (mg/dL) 55 L 60 L 171 H (75-99) mg/dL POC Glu Vault Cashier Quynh Aparicio, Quynh Weaver Quynh Lactic Ac Sepsis Rflx Plasma Lactic Acid Iron (0.7-2.0) mmol/L Calcium (8.4-10.2) mg/dL Total Bilirubin (0.2-1.3) mg/dL AST (14-36) U/L ALT (9-52) U/L Alkaline Phosphatase (38-126) U/L Troponin I (0.000-0.034) ng/mL Total Protein (6.3-8.2) g/dL Albumin (3.5-5.0) g/dL Urine HCG, Qual (Not Detectd) Urine Opiates Screen (NotDetected) Ur Oxycodone Screen (NotDetected) Urine Methadone Screen (NotDetected) Ur Propoxyphene Screen (NotDetected) Acetaminophen ug/mL Ur Barbiturates Screen (NotDetected) U Tricyclic Antidepress (NotDetected) Ur Phencyclidine Scrn (NotDetected) Ur Amphetamines Screen (NotDetected) U Methamphetamines Scrn (NotDetected) U Benzodiazepines Scrn (NotDetected) Urine Cocaine Screen (NotDetected) U Marijuana (THC) Screen (NotDetected) Serum Alcohol mg/dL - EKG Data -: EKG Interpreted by Me EKG shows normal: sinus rhythm, axis (Normal), intervals (Normal), QRS complexes (Normal) Rate: tachycardia (Rate 140 bpm) Interpretation: nonspecific ST-T wave changes Critical Care Time Critical Care Time: Yes (45 minutes) Disposition Clinical Impression: Drug overdose, Metabolic acidosis, Elevated troponin I level, Acute kidney injury Disposition: ADMITTED IP TO THIS [facility] Condition: Critical
[2018-08-31] MEDS ORDERED: SODIUM CHLORIDE 0.9% 1,000 ML IV ONE ×2 (03:33→04:32)
[2018-08-31 03:37] LABS: Anisocytosis Slight; HCT 38.8 % (34.0-46.0); HGB 11.6 gm/dL (11.4-16.0); Hypochromasia Marked; MCH 27.2 pg (25.0-35.0); MCHC 29.9 g/dL (31.0-37.0); MCV 90.9 fL (80.0-100.0); Mean Platelet Volume 9.3; Platelet Count 123 k/uL (150-450); RBC 4.26 m/uL (3.80-5.40); RDW 16.2 % (11.5-15.5)
[2018-08-31 03:44] LABS: ALT 35 U/L (9-52); AST 97 U/L (14-36); Acetaminophen <10.0 ug/mL; Alcohol <10 mg/dL; Alkaline Phosphatase 172 U/L (38-126); Anion Gap 23 mmol/L; Blood Urea Nitrogen 54 mg/dL (7-17); Chloride 104 mmol/L (98-107); Glucose 97 mg/dL (74-99); Potassium 5.2 mmol/L (3.5-5.1); Sodium 136 mmol/L (137-145); Total Bilirubin 1.1 mg/dL (0.2-1.3); Total Protein 6.7 g/dL (6.3-8.2)
--- NOTE | 2018-08-31 03:53 | XR ---
EXAM: XR Chest, 1 View CLINICAL HISTORY: ITS.REASON XR Reason: intubation TECHNIQUE: Frontal view of the chest. COMPARISON: 04/23/18 x-ray IMPRESSION: ET tube terminates 5.1 cm from the nini. NG tube enters the stomach and curls up towards the gastric fundus along the greater curvature. Increased opacity in the right lower lobe, correlate with aspiration or atelectasis.
[2018-08-31 03:59] LABS: Amphetamine Screen,Urine Detected (NotDetected); Barbiturate Screen,Urine Detected (NotDetected); Benzodiazepines Screen,Urine Detected (NotDetected); Cocaine Screen,Urine Detected (NotDetected); Methadone Screen, Urine Not Detected (NotDetected); Opiate Screen,Urine Detected (NotDetected); Oxycodone Screen, Urine Not Detected (NotDetected); Phencyclidine Screen,Urine Not Detected (NotDetected); Tricyclic Antidepressant,Urine Not Detected (NotDetected); Urn Cannabinoid Scrn Detected (NotDetected)
[2018-08-31 04:01] LABS: Carbon Dioxide 9 mmol/L (22-30)
[2018-08-31 04:09] LABS: Band Neutrophils % 12 %; Eosinophils # (M) 0.25 k/uL (0-0.7); Myelocytes # (M) 0.25 k/uL (0); Myelocytes % 1 %; Neutrophils % (M) 74 %; Nucleated Red Blood Cells 0 /100 WBC (0-0); Total Cells Counted 200
[2018-08-31 04:10] LABS: Large Platelets Present; Toxic Vacuolation Present
--- NOTE | 2018-08-31 04:12 | CT ---
EXAM: CT Head Without Intravenous Contrast CLINICAL HISTORY: ITS.REASON CT Reason: Pain TECHNIQUE: Axial computed tomography images of the head/brain without intravenous contrast. CTDI is 50 mGy and DLP is 1027 mGy-cm. This CT exam was performed using one or more of the following dose reduction techniques: automated exposure control, adjustment of the mA and/or kV according to patient size, and/or use of iterative reconstruction technique. COMPARISON: CT head 04/23/18 FINDINGS: Brain: No hemorrhage, large hypodensity, or mass effect. Ventricles: No hydrocephalus. Bones/joints: Unremarkable. Soft tissues: Unremarkable. Sinuses: Unremarkable. Mastoid air cells: Clear. IMPRESSION: No acute hemorrhage, hydrocephalus, or mass effect.
[2018-08-31] MEDS ORDERED: CLINDAMYCIN 600 MG in DEXTROSE 5% IN WATER 50 ML IVPB STA ×2 (04:15)
[2018-08-31] MEDS ORDERED: LEVOFLOXACIN 750MG-D5W PMX 750 MG in DEXTROSE/WATER 1 150ML.BAG IVPB STA (04:15)
[2018-08-31] MEDS: NOREPINEPHRINE 32 MG in SODIUM CHLORIDE 0.9% 218 ML IV SCH ×3 (04:42→23:18)
[2018-08-31] MEDS: DEXTROSE 50% SYRINGE 50 ML IVP STA ×2 (04:52→12:18)
[2018-08-31 05:21] LABS: Glucose,Whole Blood 55 mg/dL (75-99)
[2018-08-31] MEDS ORDERED: DEXTROSE 5%-0.45% NACL 1,000 ML IV ONE (05:25)
[2018-08-31] MEDS ORDERED: DEXTROSE 50% SYRINGE 50 ML IVP STA ×3 (05:25→08:23)
[2018-08-31] MEDS ORDERED: NALOXONE 0.4 MG/ML 1 ML VIAL IV PRN (05:47)
[2018-08-31] MEDS ORDERED: ACETAMINOPHEN SUPPOSITORY 650 MG SUPP RECTAL PRN (05:47)
[2018-08-31] MEDS ORDERED: ARTIFICIAL TEARS-HYPROMELLOSE DROPS 15 ML BTL BOTH EYES PRN (05:47)
[2018-08-31 05:49] LABS: Glucose,Whole Blood 171 mg/dL (75-99)
[2018-08-31 05:49] LABS: Glucose,Whole Blood 60 mg/dL (75-99)
[2018-08-31] MEDS ORDERED: SODIUM CHLORIDE 0.9% 1,000 ML IV SCH (06:00)
[2018-08-31] MEDS ORDERED: VANCOMYCIN 1,750 MG in SODIUM CHLORIDE 0.9% 500 ML 500 ML IVPB ONE (06:00)
[2018-08-31 06:06] LABS: Glucose,Whole Blood 126 mg/dL (75-99)
[2018-08-31] MEDS ORDERED: SODIUM BICARB 8.4% 50 ML SYR (1 MEQ/ML) ONE (06:59)
[2018-08-31 07:05] LABS: Glucose,Whole Blood 145 mg/dL (75-99)
[2018-08-31 07:05] LABS: Glucose,Whole Blood 74 mg/dL (75-99)
[2018-08-31] MEDS: PHENYLEPHRINE 40 MG in SODIUM CHLORIDE 0.9% 250 ML IV SCH ×4 (07:15→18:28)
[2018-08-31 07:24] LABS: Glucose,Whole Blood 119 mg/dL (75-99)
[2018-08-31 08:19] LABS: Glucose,Whole Blood 23 mg/dL (75-99)
[2018-08-31 08:31] LABS: Albumin 2.3 g/dL (3.5-5.0); Calcium 6.9 mg/dL (8.4-10.2); Magnesium 2.3 mg/dL (1.6-2.3); Total Bilirubin 1.2 mg/dL (0.2-1.3); Total Protein 5.4 g/dL (6.3-8.2)
[2018-08-31 08:33] LABS: Potassium 4.5 mmol/L (3.5-5.1)
[2018-08-31 08:53] LABS: Glucose,Whole Blood 151 mg/dL (75-99)
[2018-08-31] MEDS ORDERED: FAMOTIDINE 20 MG/2 ML VIAL IV SCH (09:00)
[2018-08-31 09:02] LABS: Glucose,Whole Blood 146 mg/dL (75-99)
[2018-08-31] MEDS ORDERED: DEXTROSE 5%-0.45% NACL 1,000 ML with SODIUM BICARB (1 MEQ/ML) 150 ML IV ONE ×2 (09:25)
[2018-08-31] MEDS: ACETAMINOPHEN IV (For NPO) 1,000 MG in EMPTY BAG 1 BAG IVPB PRN ×3 (09:30→23:29)
[2018-08-31] MEDS ORDERED: HYDROmorphone 1 MG/ML 1 ML SYRINGE IVP STA (10:00)
[2018-08-31] MEDS ORDERED: CISATRACURIUM 2 MG/ML 5 ML VIAL IV ONE (10:01)
[2018-08-31] MEDS ORDERED: SODIUM BICARB 8.4% 50 ML SYR (1 MEQ/ML) IV STA ×3 (10:02→20:31)
[2018-08-31 10:09] LABS: Glucose,Whole Blood 107 mg/dL (75-99)
[2018-08-31] MEDS ORDERED: DEXTROSE 10% IN WATER 1,000 ML IV SCH (10:15)
[2018-08-31 10:36] LABS: ABG Base Excess -25.5 mmol/L; ABG Oxygen Saturation 97.2 % (94-97); ABG PCO2 48 mmHg (35-45); ABG PO2 141 mmHg (83-108); ABG TCO2 10 mmol/L (19-24)
[2018-08-31 10:41] LABS: ABG PH <7.00 (7.35-7.45)
[2018-08-31 10:42] LABS: ABG HCO3 8 mmol/L (21-25)
[2018-08-31] MEDS ORDERED: VANCOMYCIN IV PER PHARMACY 1 EACH MISC MISCELLANE PRN (10:49)
[2018-08-31] MEDS: SODIUM BICARB 8.4% 50 ML SYR (1 MEQ/ML) IV STA (10:50)
[2018-08-31] MEDS ORDERED: fentaNYL (PF) 1,000 MCG in SODIUM CHLORIDE 0.9% 80 ML IV SCH (11:00)
[2018-08-31] MEDS ORDERED: LEVOFLOXACIN 500MG-D5W PMX 500 MG in DEXTROSE/WATER 1 100ML.BAG IVPB SCH (11:00)
[2018-08-31] MEDS ORDERED: SODIUM CHLORIDE 0.9% 150 ML with VASOPRESSIN 60 UNIT IV SCH ×2 (11:00)
[2018-08-31] MEDS: HYDROCORTISONE SUCCINATE 100 MG/2 ML VIAL IV SCH ×2 (11:02→18:45)
[2018-08-31 11:04] LABS: Glucose,Whole Blood 79 mg/dL (75-99)
--- NOTE | 2018-08-31 11:17 | ECHOF ---
Referral Reason:family history MEASUREMENTS -------- HEIGHT: 167.6 cm WEIGHT: 104.3 kg BP: 108/72 RVIDd: 3.9 cm (< 3.3) IVSd: 1.3 cm (0.6 - 1.1) LVIDd: 3.6 cm (3.9 - 5.3) LVPWd: 1.2 cm (0.6 - 1.1) IVSs: 1.9 cm LVIDs: 2.3 cm LVPWs: 1.8 cm LA Diam: 3.1 cm (2.7 - 3.8) Ao Diam: 3.2 cm (2.0 - 3.7) AV Cusp: 2.5 cm (1.5 - 2.6) MV EXCURSION: 20.499 mm (> 18.000) MV EF SLOPE: 124 mm/s (70 - 150) EPSS: 0.4 cm MV E Bishop: 0.97 m/s MV DecT: 105 ms MV A Bishop: 0.80 m/s MV E/A Ratio: 1.21 RAP: 5.00 mmHg RVSP: 44.14 mmHg FINDINGS -------- Resting tachycardia (HR>100bpm). This was a technically adequate study. The left ventricular size is normal. There is mild concentric left ventricular hypertrophy. Overa ll left ventricular systolic function is normal with, an EF between 60 - 65 %. The right ventricle is normal in size. The left atrial size is normal. The right atrium is normal in size. There is mild aortic valve sclerosis. The mitral valve leaflets are mildly thickened. Mild mitral annular calcification present. Mild tricuspid regurgitation present. There is mild pulmonary hypertension. The right ventricular systolic pressure, as measured by Doppler, is 44.14mmHg. There is a vegetation noted 13 by 16 mm o n tricuspid valve Trace/mild (physiologic) pulmonic regurgitation. The aortic root size is normal. Normal inferior vena cava with normal inspiratory collapse consistent with estimated right atrial pre ssure of 5 mmHg. There is no pericardial effusion. CONCLUSIONS -------- 1. Resting tachycardia (HR>100bpm). 2. This was a technically adequate study. 3. The left ventricular size is normal. 4. There is mild concentric left ventricular hypertrophy. 5. Overall left ventricular systolic function is normal with, an EF between 60 - 65 %. 6. The right ventricle is normal in size. 7. The left atrial size is normal. 8. The right atrium is normal in size. 9. There is mild aortic valve sclerosis. 10. The mitral valve leaflets are mildly thickened. 11. Mild mitral annular calcification present. 12. Mild tricuspid regurgitation present. 13. There is mild pulmonary hypertension. 14. The right ventricular systolic pressure, as measured by Doppler, is 44.14mmHg. 15. There is a vegetation noted 13 by 16 mm on tricuspid valve 16. Trace/mild (physiologic) pulmonic regurgitation. 17. The aortic root size is normal. 18. Normal inferior vena cava with normal inspiratory collapse consistent with estimated right atrial pressure of 5 mmHg. 19. There is no pericardial effusion. MASS SPEC: Becki Sutton RDCS
[2018-08-31] MEDS: VANCOMYCIN 1,750 MG in SODIUM CHLORIDE 0.9% 500 ML 500 ML IVPB ONE ×2 (11:37→12:04)
[2018-08-31 11:57] LABS: Glucose,Whole Blood 55 mg/dL (75-99)
[2018-08-31 11:57] LABS: Glucose,Whole Blood <20 mg/dL (75-99)
[2018-08-31 12:35] LABS: Glucose,Whole Blood 36 mg/dL (75-99)
[2018-08-31 12:51] LABS: Glucose,Whole Blood 40 mg/dL (75-99)
[2018-08-31] MEDS: DEXTROSE 50% SYRINGE 50 ML IVP PRN ×3 (12:56→22:40)
[2018-08-31 13:16] LABS: Glucose,Whole Blood <20 mg/dL (75-99)
[2018-08-31 13:19] LABS: Glucose,Whole Blood 33 mg/dL (75-99)
[2018-08-31 13:50] LABS: Glucose,Whole Blood 28 mg/dL (75-99)
[2018-08-31 14:04] LABS: Glucose,Whole Blood 536 mg/dL (75-99)
[2018-08-31 14:20] LABS: Glucose,Whole Blood 471 mg/dL (75-99)
--- NOTE | 2018-08-31 14:29 | P.CNPUL ---
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 EMS was notified that the pat ient was found unresponsive, and EMS were told that she had previously used her awake. Upon arrival the patient was unresponsive, her blood sugar was extremely low, she was given dextrose, patient was also given Narcan. Patient remained unresponsive, there was clearly evidence of drug paraphernalia at the scene. Patient was intubated by EMS, brought into the ER, and has been doing poorly since 2 AM in the morning. Patient was noted to be hypotensive, hypoglycemic, extremely acidotic, maximized on norepinephrine, Javon-Synephrine, vasopressin, maximized on D10 and dextrose infusions, remains relatively hypotensive, tachycardic, hypoglycemic, hyperthermic, anuric, extremely mottled, peripheral pulses palpable only by Doppler, unresponsive, on mechanical ventilation, on high FiO2, high PEEP, and placed on Nimbex as well as fentanyl drip. I saw this patient early this morning shortly after she arrived to the ICU, noted that the patient had severe metabolic acidosis pH has always been below 7, in spite of sodium bicarb drip, and multiple amps of bicarb were given. Attempted to place a right brachial arterial line, I was able to access the brachial artery, but could not pass a guidewire. I also attempted in the right groin and in the left groin to access the femoral arteries, both were accessed by Doppler, but again could not pass a guidewire. No further attempts were made. But clearly based on the presentation and based on the overall picture, I approached the family and made them aware that her condition is extremely poor and it is basically a medical futility situation. Her echocardiogram showed right-sided vegetations on the tricuspid valve. Her drug screen was positive for opiates, barbiturates, amphetamines, methamphetamine, benzodiazepine, cocaine, and marijuana. Acetaminophen level was below 10. Serum alcohol below 10. Plasma lactic acid was 7.3. Patient had leukocytosis BUN 54 creatinine 4.61, liver enzymes were elevated. Troponin was elevated. Blood sugar on arrival to the ER was 135. WBC count was 25.0. Patient was noted to be unresponsive, pupils were pinpoint, and she was on mechanical ventilation tachypneic and tachycardic, patient was p laced on Nimbex to adequately ventilate the patient. And hopefully improve her oxygenation. Most recent ABG showed a pO2 of 141 pCO2 of 48 pH of less than 7. Patient remains on sodium bicarb drip, multiple amps of sodium bicarb were given. Review of Systems ROS unobtainable: due to endotracheal tube Past Medical History Past Medical History: Asthma, COPD, Fibromyalgia Additional Past Medical History / Comment(s): chronic back pain, anxiety,depressive disorder migraines, heroin use .,several accidental drug overdoses.hep c, IBS, KIDNEY STONE History of Any Multi-Drug Resistant Organisms: MRSA Date of last positivie culture/infection: 01/02/16 MDRO Source:: RIGHT ARM Past Surgical History: Section, Cholecystectomy, Orthopedic Surgery Additional Past Surgical History / Comment(s): d & c's, hand surg,rt wrist surg 3 years ago d/t fx has hardware, tubal ligation, hepatitus c Past Anesthesia/Blood Transfusion Reactions: Previous Problems w/ Anesthesia Additional Past Anesthesia/Blood Transfusion Reaction / Comment(s): unsure of the reaction, CLAUSTERPHOBIA Past Psychological History: ADD/ADHD, Anxiety, Depression, Panic Disorder Smoking Status: Current every day smoker Past Alcohol Use History: Rare Past Drug Use History: Marijuana - Past Family History Mother Family Medical History: Cancer Father Additional Family Medical History / Comment(s): ETOH ABUSE Medications and Allergies Home Medications Medication Instructions Recorded Confirmed Type Albuterol Inhaler [Ventolin Hfa 2 puff INHALATION RT-Q4H PRN 08/31/18 08/31/18 History Inhaler] Butalbital/Aspirin/Caffeine 1 cap PO Q6H PRN 08/31/18 08/31/18 History [Fiorinal 50-325-40 MG] Gabapentin [Neurontin] 800 mg PO TID 08/31/18 08/31/18 History Ibuprofen [Motrin] 800 mg PO TID PRN 08/31/18 08/31/18 History Lisinopril [Prinivil] 5 mg PO DAILY 08/31/18 08/31/18 History tiZANidine HCL [Zanaflex] 2 mg PO TID PRN 08/31/18 08/31/18 History Allergies Allergy/AdvReac Type Severity Reaction Status Date / Time codeine Allergy Rash/Hives Verified 08/31/18 02:54 Penicillins Allergy Unknown Verified 08/31/18 02:54 Childhood Physical Exam Vitals: Vital Signs Temp Pulse Resp BP Pulse Ox 08/31/18 13:00 140 H 30 H 103/73 97 08/31/18 12:50 141 H 30 H 88/47 94 L 08/31/18 12:40 141 H 29 H 94/42 96 08/31/18 12:30 141 H 29 H 94/44 96 08/31/18 12:20 138 H 27 H 76/56 95 08/31/18 12:10 142 H 27 H 111/71 98 08/31/18 12:00 102.9 F H 144 H 27 H 76/56 98 08/31/18 11:50 144 H 26 H 100/66 98 08/31/18 11:40 146 H 26 H 93/48 98 08/31/18 11:30 146 H 26 H 97/57 98 08/31/18 11:20 146 H 26 H 98/44 98 08/31/18 11:10 146 H 26 H 90/54 98 08/31/18 11:00 103.0 F H 146 H 21 105/55 98 08/31/18 10:50 144 H 26 H 111/74 99 08/31/18 10:40 135 H 4 L 97 08/31/18 10:30 135 H 11 L 96/42 96 08/31/18 10:20 137 H 4 L 129/65 95 08/31/18 10:10 140 H 6 L 124/109 98 08/31/18 10:00 103.0 F H 138 H 36 H 112/77 92 L 08/31/18 09:50 138 H 36 H 128/76 90 L 08/31/18 09:40 138 H 37 H 90 L 08/31/18 09:30 138 H 36 H 102/42 90 L 08/31/18 09:20 137 H 37 H 98/44 89 L 08/31/18 09:10 135 H 37 H 97/49 91 L 08/31/18 09:00 102.6 F H 135 H 38 H 110/53 92 L 08/31/18 08:50 135 H 37 H 110/57 90 L 08/31/18 08:30 135 H 29 H 108/72 90 L 08/31/18 08:15 137 H 35 H 104/73 95 08/31/18 08:00 101.6 F H 138 H 35 H 102/71 94 L 08/31/18 07:45 137 H 35 H 91/70 96 08/31/18 07:30 135 H 31 H 96/61 97 08/31/18 07:15 134 H 27 H 88/58 95 08/31/18 07:00 123 H 33 H 68/44 80 L 08/31/18 06:45 124 H 33 H 57/31 79 L 08/31/18 06:00 124 H 36 H 229/207 87 L 08/31/18 05:37 130 H 30 H 194/136 91 L 08/31/18 05:15 133 H 36 H 83/45 88 L 08/31/18 05:00 131 H 38 H 86/52 80 L 08/31/18 04:45 133 H 38 H 65/21 81 L 08/31/18 04:30 134 H 37 H 53/33 86 L 08/31/18 04:29 99.6 F 08/31/18 04:00 120 H 38 H 87/45 98 08/31/18 03:45 137 H 39 H 101/91 84 L 08/31/18 03:30 138 H 38 H 87/58 87 L 08/31/18 03:15 140 H 38 H 97/83 86 L 08/31/18 02:48 97.4 F L 140 H 13 120/92 94 L Intake and Output 08/30/18 08/31/18 08/31/18 22:59 06:59 14:59 Intake Total 3.823 2983.707 Output Total 30 0 Balance -26.177 2983.707 Intake: IV 2842.27 ACETAMINOPHEN IV (For NPO 100 ) 1,000 mg In Empty Bag 1 bag @ 400 mls/hr IVPB Q6HR PRN Rx#:[id number] Dextrose 10% in Water 1, 225 000 ml @ 75 mls/hr IV . [id number] CANDIDA Rx#:[id number] Dextrose 5%-0.45% NaCl 1, 600 000 ml @ 100 mls/hr IV . Q10H ONE Rx#:[id number] Phenylephrine 40 mg In 395 Sodium Chloride 0.9% 250 ml @ 2 MCG/KG/MIN 79.496 mls/hr IV .Q3H12M CANDIDA Rx# :[id number] Sodium Chloride 0.9% 1, 1000 000 ml @ 999 mls/hr IV . Q1H1M STA Rx#:[id number] Sodium Chloride 0.9% 150 13.77 ml @ 0.03 UNITS/MIN 4.59 mls/hr IV .Q24H CANDIDA with Vasopressin 60 unit Rx#: [id number] Vancomycin 1,750 mg In 501 Sodium Chloride 0.9% 500 ml 500 ml @ 167 mls/hr IVPB ONCE ONE Rx#: [id number] fentaNYL (PF) 1,000 mcg 7.5 In Sodium Chloride 0.9% 80 ml @ 25 MCG/HR 2.5 mls /hr IV .Q24H CANDIDA Rx#: [id number] Intake, IV Titration 3.823 141.437 Amount Norepinephrine 32 mg In 3.823 141.437 Sodium Chloride 0.9% 218 ml @ 0.05 MCG/KG/MIN 2. 445 mls/hr IV .Q24H CANDIDA Rx#:[id number] Output: Urine 30 0 Straight 30 Other: Weight 104.326 kg ABP, PAP, CO, CI - Last 8 Hours Arterial Blood Pressure 190/186 Limitations: Unresponsive General appearance: Revealed a 42-year-old female on mechanical ventilation, unresponsive to any stimuli. Head exam: Present: atraumatic, normocephalic Eye exam: Pinpoint pupils, dry mucous membranes, no icterus. ENT exam: Dry mucous membranes, mottled looking, endotracheal tube and oroga stric tube are intact. Neck exam: No neck masses, no JVD, no stridor. Respiratory exam: Diminished breath sound bilaterally, rhonchi noted bilaterally . Symmetrical chest expansion. Cardiovascular Exam: Tachycardic, normal S1 and S2, 2/6 systolic murmur thought the precordium. GI/Abdominal exam: Soft nontender no megaly no rebound no guarding. Negative bowel sounds Extremities exam: Extremely mottled upper and lower extremities. Poor pulses throughout, only palpable by Doppler. Neurological exam: Comatose, unresponsive to any stimuli, pupils are pinpoint, nonreactive, Skin: Bluish and mottled skin from the head all the way down to her toes. Results - Laboratory Findings CBC and BMP: 08/31/18 03:20 08/31/18 07:49 ABG ABG pH <7.00 (7.35-7.45) L* 08/31/18 10:34 ABG pCO2 48 mmHg (35-45) H 08/31/18 10:34 ABG pO2 141 mmHg (83-108) H 08/31/18 10:34 ABG O2 Saturation 97.2 % (94-97) H 08/31/18 10:34 Abnormal lab findings: Abnormal Labs 08/31/18 08/31/18 08/31/18 02:48 03:08 03:20 WBC MCHC RDW Plt Count Neutrophils # (Manual) Monocytes # (Manual) Myelocytes # (Manual) ABG pH 7.00 L* ABG pCO2 ABG pO2 78 L ABG HCO3 9 L* ABG Total CO2 11 L ABG O2 Saturation 87.3 L Sodium 136 L Potassium 5.2 H Chloride Carbon Dioxide 9 L* BUN 54 H Creatinine 4.76 H Glucose POC Glucose (mg/dL) 106 H Plasma Lactic Acid Iron Calcium AST 97 H ALT Alkaline Phosphatase 172 H Troponin I Total Protein Albumin 3.0 L Urine Opiates Screen Ur Barbiturates Screen Ur Amphetamines Screen U Methamphetamines Scrn U Benzodiazepines Scrn Urine Cocaine Screen U Marijuana (THC) Screen 08/31/18 08/31/18 08/31/18 03:20 03:20 03:20 WBC 25.0 H MCHC 29.9 L RDW 16.2 H Plt Count 123 L Neutrophils # (Manual) 21.50 H Monocytes # (Manual) 2.00 H Myelocytes # (Manual) 0.25 H ABG pH ABG pCO2 ABG pO2 ABG HCO3 ABG Total CO2 ABG O2 Saturation Sodium Potassium Chloride Carbon Dioxide BUN Creatinine Glucose POC Glucose (mg/dL) Plasma Lactic Acid Iron 9.6 H* Calcium AST ALT Alkaline Phosphatase Troponin I 0.169 H* Total Protein Albumin Urine Opiates Screen Ur Barbiturates Screen Ur Amphetamines Screen U Methamphetamines Scrn U Benzodiazepines Scrn Urine Cocaine Screen U Marijuana (THC) Screen 08/31/18 08/31/18 08/31/18 03:39 04:50 05:24 WBC MCHC RDW Plt Count Neutrophils # (Manual) Monocytes # (Manual) Myelocytes # (Manual) ABG pH ABG pCO2 ABG pO2 ABG HCO3 ABG Total CO2 ABG O2 Saturation Sodium Potassium Chloride Carbon Dioxide BUN Creatinine Glucose POC Glucose (mg/dL) 55 L 60 L Plasma Lactic Acid Iron Calcium AST ALT Alkaline Phosphatase Troponin I Total Protein Albumin Urine Opiates Screen Detected H Ur Barbiturates Screen Detected H Ur Amphetamines Screen Detected H U Methamphetamines Scrn Detected H U Benzodiazepines Scrn Detected H Urine Cocaine Screen Detected H U Marijuana (THC) Screen Detected H 08/31/18 08/31/18 08/31/18 05:46 06:02 06:38 WBC MCHC RDW Plt Count Neutrophils # (Manual) Monocytes # (Manual) Myelocytes # (Manual) ABG pH ABG pCO2 ABG pO2 ABG HCO3 ABG Total CO2 ABG O2 Saturation Sodium Potassium Chloride Carbon Dioxide BUN Creatinine Glucose POC Glucose (mg/dL) 171 H 126 H 74 L Plasma Lactic Acid Iron Calcium AST ALT Alkaline Phosphatase Troponin I Total Protein Albumin Urine Opiates Screen Ur Barbiturates Screen Ur Amphetamines Screen U Methamphetamines Scrn U Benzodiazepines Scrn Urine Cocaine Screen U Marijuana (THC) Screen 08/31/18 08/31/18 08/31/18 06:56 07:14 07:41 WBC MCHC RDW Plt Count Neutrophils # (Manual) Monocytes # (Manual) Myelocytes # (Manual) ABG pH ABG pCO2 ABG pO2 ABG HCO3 ABG Total CO2 ABG O2 Saturation Sodium Potassium Chloride Carbon Dioxide BUN Creatinine Glucose POC Glucose (mg/dL) 145 H 119 H Plasma Lactic Acid Iron 7.3 H* Calcium AST ALT Alkaline Phosphatase Troponin I Total Protein Albumin Urine Opiates Screen Ur Barbiturates Screen Ur Amphetamines Screen U Methamphetamines Scrn U Benzodiazepines Scrn Urine Cocaine Screen U Marijuana (THC) Screen 08/31/18 08/31/18 08/31/18 07:49 08:17 08:33 WBC MCHC RDW Plt Count Neutrophils # (Manual) Monocytes # (Manual) Myelocytes # (Manual) ABG pH ABG pCO2 ABG pO2 ABG HCO3 ABG Total CO2 ABG O2 Saturation Sodium Potassium Chloride 112 H Carbon Dioxide 12 L BUN 54 H Creatinine 4.61 H Glucose 135 H POC Glucose (mg/dL) 23 L 151 H Plasma Lactic Acid Iron Calcium 6.9 L AST 507 H ALT 80 H Alkaline Phosphatase 163 H Troponin I Total Protein 5.4 L Albumin 2.3 L Urine Opiates Screen Ur Barbiturates Screen Ur Amphetamines Screen U Methamphetamines Scrn U Benzodiazepines Scrn Urine Cocaine Screen U Marijuana (THC) Screen 08/31/18 08/31/18 08/31/18 09:01 10:07 10:34 WBC MCHC RDW Plt Count Neutrophils # (Manual) Monocytes # (Manual) Myelocytes # (Manual) ABG pH <7.00 L* ABG pCO2 48 H ABG pO2 141 H ABG HCO3 8 L* ABG Total CO2 10 L ABG O2 Saturation 97.2 H Sodium Potassium Chloride Carbon Dioxide BUN Creatinine Glucose POC Glucose (mg/dL) 146 H 107 H Plasma Lactic Acid Iron Calcium AST ALT Alkaline Phosphatase Troponin I Total Protein Albumin Urine Opiates Screen Ur Barbiturates Screen Ur Amphetamines Screen U Methamphetamines Scrn U Benzodiazepines Scrn Urine Cocaine Screen U Marijuana (THC) Screen 08/31/18 08/31/18 08/31/18 11:54 11:56 12:25 WBC MCHC RDW Plt Count Neutrophils # (Manual) Monocytes # (Manual) Myelocytes # (Manual) ABG pH ABG pCO2 ABG pO2 ABG HCO3 ABG Total CO2 ABG O2 Saturation Sodium Potassium Chloride Carbon Dioxide BUN Creatinine Glucose POC Glucose (mg/dL) <20 L 55 L Plasma Lactic Acid Iron Calcium AST ALT Alkaline Phosphatase Troponin I 0.234 H* Total Protein Albumin Urine Opiates Screen Ur Barbiturates Screen Ur Amphetamines Screen U Methamphetamines Scrn U Benzodiazepines Scrn Urine Cocaine Screen U Marijuana (THC) Screen 08/31/18 08/31/18 08/31/18 12:33 12:50 13:15 WBC MCHC RDW Plt Count Neutrophils # (Manual) Monocytes # (Manual) Myelocytes # (Manual) ABG pH ABG pCO2 ABG pO2 ABG HCO3 ABG Total CO2 ABG O2 Saturation Sodium Potassium Chloride Carbon Dioxide BUN Creatinine Glucose POC Glucose (mg/dL) 36 L 40 L <20 L Plasma Lactic Acid Iron Calcium AST ALT Alkaline Phosphatase Troponin I Total Protein Albumin Urine Opiates Screen Ur Barbiturates Screen Ur Amphetamines Screen U Methamphetamines Scrn U Benzodiazepines Scrn Urine Cocaine Screen U Marijuana (THC) Screen 08/31/18 08/31/18 08/31/18 13:18 13:48 14:01 WBC MCHC RDW Plt Count Neutrophils # (Manual) Monocytes # (Manual) Myelocytes # (Manual) ABG pH ABG pCO2 ABG pO2 ABG HCO3 ABG Total CO2 ABG O2 Saturation Sodium Potassium Chloride Carbon Dioxide BUN Creatinine Glucose POC Glucose (mg/dL) 33 L 28 L 536 H Plasma Lactic Acid Iron Calcium AST ALT Alkaline Phosphatase Troponin I Total Protein Albumin Urine Opiates Screen Ur Barbiturates Screen Ur Amphetamines Screen U Methamphetamines Scrn U Benzodiazepines Scrn Urine Cocaine Screen U Marijuana (THC) Screen - Diagnostic Findings Chest x-ray: image reviewed (Chest x-ray showed increased opacity at the right lower lobe possibly related to atelectasis or aspiration.) Additional studies: CT of the brain was nondiagnostic, no hemorrhage, no mass effect, no hy drocephalus, Assessment and Plan Assessment: Impression: 1 acute hypoxic respiratory failure, profound and severe on iron gap metabolic acidosis, severe hypoglycemia, acute kidney injury, multiple drug overdose, and septic shock. 2 acute septic shock most likely secondary to endocarditis involving the tricuspid valve. 3 multiple drugs overdose 4 profound hypoglycemia secondary to above 5 acute kidney injury and anuria secondary to acute tubular necrosis, hypotension, and septic shock. 6 strongly suspect anoxic brain injury 7 history of hepatitis C and abnormal liver enzymes could be secondary to shocked liver with known history of hepatitis C. Recommendation: Continue mechanical ventilation for now, Continue sodium bicarb drip Continue D10 W drip because of profound hypoglycemia, Continue pressors including norepinephrine, Javon-Synephrine, and vasopressin. Antibiotics patient was started on vancomycin and Levaquin. We will consult infectious disease. Consult cardiology regarding her abnormal echocardiogram and endocarditis. Had long discussion with the family including her mother and her 22-year-old daughter who is the next of kin, address the CODE STATUS with both of them, at this point the patient is DO NOT RESUSCITATE, and considering the medical futility presentation, family may consider terminal weaning and comfort care measures. Prognosis is extremely poor, condition is futile. We'll continue to follow. Critical care time is 70 minutes. Time with Patient: Greater than 30
--- NOTE | 2018-08-31 14:30 | P.PN ---
Progress Note - Text Progress Note Date: 08/31/[address] in this patient a right brachial arterial line, I was able to cannulate the brachial artery but a wire could not be passed. The right femoral artery was also cannulated and could not pass the wire through the right femoral artery. The left femoral artery was also cannulated easily by using Doppler, and could not pass a wire through the left femoral artery also. Hence no further attempts were made.
--- NOTE | 2018-08-31 14:51 | P.HPIM ---
History of Present Illness 42-year-old female was brought in after suspected overdose, patient didn't undergo CPR patient was unresponsive, patient is a staying with a friend for last couple days after her breakup with the her significant other couple days ag o. Patient was intubated at the scene was brought to ER. Patient was severely acidotic does appear to have aspiration pneumonia, no significant improvement compared to yesterday in spite of aggressive measures. Patient is presently intubated with set up respiratory rate of 26 patient is not breathing over the ventilator patient is on sedation with propofol, FiO2 100% PEEP of 10. Patient has severe multifactorial metabolic acidosis, patient is on broad-spectrum antibiotics vancomycin and Zosyn presently does appear to have aspiration. Drug screen was positive for multipledrugs including opiates and barbiturates and amphetamines with amphetamines cocaine and marijuana, serum alcohol was less than 10 troponins are bit elevated patient appears to have acute renal failure and acute sugar necrosis multiorgan dysfunction with elevated liver enzymes. Patient does have pupillary reaction although mostly constricted because of propofol doesn't have much of gag reflex although patient is sedated. Patient is on 93 pressor support including norepinephrine, epinephrine and vasopressin, and maximal doses for all these patient is also getting IV fluids at a rate of 100 mL with the D5 with 3 A of bicarbonate along with D10 because of severe hypoglycemia now her blood sugars started going up probably D10 can be decreased and we can increase the rate of D5 at this time.patient's pH is less than 7 bicarbonate is 8 pCO2 is 48 and pO2 is presently 141 Had a lengthy discussion with the family regarding overall prognosis expectations. After discussing with the family reasonable patient is DO NOT RESUSCITATE as if her heart stops the chance of survival is almost nill.although it's reasonable to continue aggressive measures for tonight and if patient gets worse probably need to make be made comfort care and withdraw support at that time. Patient can you to improve by tomorrow probably we can continue the present management.. Same thing was discussed with the family at bedside mother father as well as daughter were present at the bedside and Family is agreeable with the above-mentioned plan. Review of Systems Unable to assess Past Medical History Past Medical History: Asthma, COPD, Fibromyalgia Additional Past Medical History / Comment(s): chronic back pain, anxiety,depressive disorder migraines, heroin use .,several accidental drug overdoses.hep c, IBS, KIDNEY STONE History of Any Multi-Drug Resistant Organisms: MRSA Date of last positivie culture/infection: 01/02/16 MDRO Source:: RIGHT ARM Past Surgical History: Section, Cholecystectomy, Orthopedic Surgery Additional Past Surgical History / Comment(s): d & c's, hand surg,rt wrist surg 3 years ago d/t fx has hardware, tubal ligation, hepatitus c Past Anesthesia/Blood Transfusion Reactions: Previous Problems w/ Anesthesia Additional Past Anesthesia/Blood Transfusion Reaction / Comment(s): unsure of the reaction, CLAUSTERPHOBIA Past Psychological History: ADD/ADHD, Anxiety, Depression, Panic Disorder Smoking Status: Current every day smoker Past Alcohol Use History: Rare Past Drug Use History: Marijuana - Past Family History Mother Family Medical History: Cancer Additional Family Medical History / Comment(s): Mother had cancer removed from her back. Mother recently had PCI with stents. She had a ND at the age of 50yrs. Father Additional Family Medical History / Comment(s): ETOH ABUSE Medications and Allergies Home Medications Medication Instructions Recorded Confirmed Type Albuterol Inhaler [Ventolin Hfa 2 puff INHALATION RT-Q4H PRN 08/31/18 08/31/18 History Inhaler] Butalbital/Aspirin/Caffeine 1 cap PO Q6H PRN 08/31/18 08/31/18 History [Fiorinal 50-325-40 MG] Gabapentin [Neurontin] 800 mg PO TID 08/31/18 08/31/18 History Ibuprofen [Motrin] 800 mg PO TID PRN 08/31/18 08/31/18 History Lisinopril [Prinivil] 5 mg PO DAILY 08/31/18 08/31/18 History tiZANidine HCL [Zanaflex] 2 mg PO TID PRN 08/31/18 08/31/18 History Allergies Allergy/AdvReac Type Severity Reaction Status Date / Time codeine Allergy Rash/Hives Verified 08/31/18 02:54 Penicillins Allergy Unknown Verified 08/31/18 02:54 Childhood Physical Exam Vitals: Vital Signs Temp Pulse Resp BP Pulse Ox 08/31/18 14:10 140 H 30 H 115/77 96 08/31/18 14:00 138 H 32 H 115/78 96 08/31/18 13:50 138 H 30 H 120/89 97 08/31/18 13:40 133 H 30 H 125/56 96 08/31/18 13:30 102.8 F H 140 H 28 H 114/74 96 08/31/18 13:20 141 H 29 H 98/58 96 08/31/18 13:10 140 H 30 H 119/77 96 08/31/18 13:00 140 H 30 H 103/73 97 08/31/18 12:50 141 H 30 H 88/47 94 L 08/31/18 12:40 141 H 29 H 94/42 96 08/31/18 12:30 141 H 29 H 94/44 96 08/31/18 12:20 138 H 27 H 76/56 95 08/31/18 12:10 142 H 27 H 111/71 98 08/31/18 12:00 102.9 F H 144 H 27 H 76/56 98 08/31/18 11:50 144 H 26 H 100/66 98 08/31/18 11:40 146 H 26 H 93/48 98 08/31/18 11:30 146 H 26 H 97/57 98 08/31/18 11:20 146 H 26 H 98/44 98 08/31/18 11:10 146 H 26 H 90/54 98 08/31/18 11:00 103.0 F H 146 H 21 105/55 98 08/31/18 10:50 144 H 26 H 111/74 99 08/31/18 10:40 135 H 4 L 97 08/31/18 10:30 135 H 11 L 96/42 96 08/31/18 10:20 137 H 4 L 129/65 95 08/31/18 10:10 140 H 6 L 124/109 98 08/31/18 10:00 103.0 F H 138 H 36 H 112/77 92 L 08/31/18 09:50 138 H 36 H 128/76 90 L 08/31/18 09:40 138 H 37 H 90 L 08/31/18 09:30 138 H 36 H 102/42 90 L 08/31/18 09:20 137 H 37 H 98/44 89 L 08/31/18 09:10 135 H 37 H 97/49 91 L 08/31/18 09:00 102.6 F H 135 H 38 H 110/53 92 L 08/31/18 08:50 135 H 37 H 110/57 90 L 05/10/19 08:30 135 H 29 H 108/72 90 L 08/31/18 08:15 137 H 35 H 104/73 95 08/31/18 08:00 101.6 F H 138 H 35 H 102/71 94 L 08/31/18 07:45 137 H 35 H 91/70 96 08/31/18 07:30 135 H 31 H 96/61 97 08/31/18 07:15 134 H 27 H 88/58 95 08/31/18 07:00 123 H 33 H 68/44 80 L 08/31/18 06:45 124 H 33 H 57/31 79 L 08/31/18 06:00 124 H 36 H 229/207 87 L 08/31/18 05:37 130 H 30 H 194/136 91 L 08/31/18 05:15 133 H 36 H 83/45 88 L 08/31/18 05:00 131 H 38 H 86/52 80 L 08/31/18 04:45 133 H 38 H 65/21 81 L 08/31/18 04:30 134 H 37 H 53/33 86 L 08/31/18 04:29 99.6 F 08/31/18 04:00 120 H 38 H 87/45 98 08/31/18 03:45 137 H 39 H 101/91 84 L 08/31/18 03:30 138 H 38 H 87/58 87 L 08/31/18 03:15 140 H 38 H 97/83 86 L 08/31/18 02:48 97.4 F L 140 H 13 120/92 94 L Intake and Output 08/30/18 08/31/18 08/31/18 22:59 06:59 14:59 Intake Total 3.823 2983.707 Output Total 30 0 Balance -26.177 2983.707 Intake: IV 2842.27 ACETAMINOPHEN IV (For NPO 100 ) 1,000 mg In Empty Bag 1 bag @ 400 mls/hr IVPB Q6HR PRN Rx#:[id number] Dextrose 10% in Water 1, 225 000 ml @ 75 mls/hr IV . [id number] C[facility] Rx#:[id number] Dextrose 5%-0.45% NaCl 1, 600 000 ml @ 100 mls/hr IV . Q10H ONE Rx#:[id number] Phenylephrine 40 mg In 395 Sodium Chloride 0.9% 250 ml @ 2 MCG/KG/MIN 79.496 mls/hr IV .Q3H12M C[facility] Rx# :[id number] Sodium Chloride 0.9% 1, 1000 000 ml @ 999 mls/hr IV . Q1H1M STA Rx#:[id number] Sodium Chloride 0.9% 150 13.77 ml @ 0.03 UNITS/MIN 4.59 mls/hr IV .Q24H C[facility]IDA with Vasopressin 60 unit Rx#: [id number] Vancomycin 1,750 mg In 501 Sodium Chloride 0.9% 500 ml 500 ml @ 167 mls/hr IVPB ONCE ONE Rx#: [id number] fentaNYL (PF) 1,000 mcg 7.5 In Sodium Chloride 0.9% 80 ml @ 25 MCG/HR 2.5 mls /hr IV .Q24H C[facility]IDA Rx#: [id number] Intake, IV Titration 3.823 141.437 Amount Norepinephrine 32 mg In 3.823 141.437 Sodium Chloride 0.9% 218 ml @ 0.05 MCG/KG/MIN 2. 445 mls/hr IV .Q24H C[facility] Rx#:[id number] Output: Urine 30 0 Straight 30 Other: Weight 104.326 kg ABP, PAP, CO, CI - Last 8 Hours Arterial Blood Pressure 190/186 PHYSICAL EXAMINATION: GENERAL: patient is intubated sedated HEENT: Pupils are round and and reactive mostly in the constricted state.. EOMI. No scleral icterus. No conjunctival pallor. Normocephalic, atraumatic. No pharyngeal erythema. No thyromegaly. CARDIOVASCULAR: S1 and S2 present. No murmurs, rubs, or gallops. PULMONARY: Chest is clear to auscultation, no wheezing or crackles. ABDOMEN: Soft, nontender, nondistended, normoactive bowel sounds. No palpable organomegaly. MUSCULOSKELETAL: No joint swelling or deformity. EXTREMITIES: No cyanosis, clubbing, or pedal edema. NEUROLOGICAL: unable to assess patient barely has any gag reflex does have pupillary reflex patient RASS score -2 SKIN: No rashes. Results CBC & Chem 7: 08/31/18 03:20 08/31/18 07:49 Labs: Abnormal Lab Results - Last 24 Hours (Table) 08/31/18 08/31/1819 Range/Units 02:48 03:08 03:20 WBC (3.8-10.6) k/uL MCHC (31.0-37.0) g/dL RDW (11.5-15.5) % Plt Count (150-450) k/uL Neutrophils # (Manual) (1.3-7.7) k/uL Monocytes # (Manual) (0-1.0) k/uL Myelocytes # (Manual) (0) k/uL ABG pH 7.00 L* (7.35-7.45) ABG pCO2 (35-45) mmHg ABG pO2 78 L (83-108) mmHg ABG HCO3 9 L* (21-25) mmol/L ABG Total CO2 11 L (19-24) mmol/L ABG O2 Saturation 87.3 L (94-97) % Sodium 136 L (137-145) mmol/L Potassium 5.2 H (3.5-5.1) mmol/L Chloride (98-107) mmol/L Carbon Dioxide 9 L* (22-30) mmol/L BUN 54 H (7-17) mg/dL Creatinine 4.76 H (0.52-1.04) mg/dL Glucose (74-99) mg/dL POC Glucose (mg/dL) 106 H (75-99) mg/dL Plasma Lactic Acid Iron (0.7-2.0) mmol/L Calcium (8.4-10.2) mg/dL AST 97 H (14-36) U/L ALT (9-52) U/L Alkaline Phosphatase 172 H (38-126) U/L Troponin I (0.000-0.034) ng/mL Total Protein (6.3-8.2) g/dL Albumin 3.0 L (3.5-5.0) g/dL Urine Opiates Screen (NotDetected) Ur Barbiturates Screen (NotDetected) Ur Amphetamines Screen (NotDetected) U Methamphetamines Scrn (NotDetected) U Benzodiazepines Scrn (NotDetected) Urine Cocaine Screen (NotDetected) U Marijuana (THC) Screen (NotDetected) 08/31/18 08/31/18 08/31/18 Range/Units 03:20 03:20 03:20 WBC 25.0 H (3.8-10.6) k/uL MCHC 29.9 L (31.0-37.0) g/dL RDW 16.2 H (11.5-15.5) % Plt Count 123 L (150-450) k/uL Neutrophils # (Manual) 21.50 H (1.3-7.7) k/uL Monocytes # (Manual) 2.00 H (0-1.0) k/uL Myelocytes # (Manual) 0.25 H (0) k/uL ABG pH (7.35-7.45) ABG pCO2 (35-45) mmHg ABG pO2 (83-108) mmHg ABG HCO3 (21-25) mmol/L ABG Total CO2 (19-24) mmol/L ABG O2 Saturation (94-97) % Sodium (137-145) mmol/L Potassium (3.5-5.1) mmol/L Chloride (98-107) mmol/L Carbon Dioxide (22-30) mmol/L BUN (7-17) mg/dL Creatinine (0.52-1.04) mg/dL Glucose (74-99) mg/dL POC Glucose (mg/dL) (75-99) mg/dL Plasma Lactic Acid Iron 9.6 H* (0.7-2.0) mmol/L Calcium (8.4-10.2) mg/dL AST (14-36) U/L ALT (9-52) U/L Alkaline Phosphatase (38-126) U/L Troponin I 0.169 H* (0.000-0.034) ng/mL Total Protein (6.3-8.2) g/dL Albumin (3.5-5.0) g/dL Urine Opiates Screen (NotDetected) Ur Barbiturates Screen (NotDetected) Ur Amphetamines Screen (NotDetected) U Methamphetamines Scrn (NotDetected) U Benzodiazepines Scrn (NotDetected) Urine Cocaine Screen (NotDetected) U Marijuana (THC) Screen (NotDetected) 08/31/18 08/31/18 08/31/18 Range/Units 03:39 04:50 05:24 WBC (3.8-10.6) k/uL MCHC (31.0-37.0) g/dL RDW (11.5-15.5) % Plt Count (150-450) k/uL Neutrophils # (Manual) (1.3-7.7) k/uL Monocytes # (Manual) (0-1.0) k/uL Myelocytes # (Manual) (0) k/uL ABG pH (7.35-7.45) ABG pCO2 (35-45) mmHg ABG pO2 (83-108) mmHg ABG HCO3 (21-25) mmol/L ABG Total CO2 (19-24) mmol/L ABG O2 Saturation (94-97) % Sodium (137-145) mmol/L Potassium (3.5-5.1) mmol/L Chloride (98-107) mmol/L Carbon Dioxide (22-30) mmol/L BUN (7-17) mg/dL Creatinine (0.52-1.04) mg/dL Glucose (74-99) mg/dL POC Glucose (mg/dL) 55 L 60 L (75-99) mg/dL Plasma Lactic Acid Iron (0.7-2.0) mmol/L Calcium (8.4-10.2) mg/dL AST (14-36) U/L ALT (9-52) U/L Alkaline Phosphatase (38-126) U/L Troponin I (0.000-0.034) ng/mL Total Protein (6.3-8.2) g/dL Albumin (3.5-5.0) g/dL Urine Opiates Screen Detected H (NotDetected) Ur Barbiturates Screen Detected H (NotDetected) Ur Amphetamines Screen Detected H (NotDetected) U Methamphetamines Scrn Detected H (NotDetected) U Benzodiazepines Scrn Detected H (NotDetected) Urine Cocaine Screen Detected H (NotDetected) U Marijuana (THC) Screen Detected H (NotDetected) 08/31/18 08/31/18 08/31/18 Range/Units 05:46 06:02 06:38 WBC (3.8-10.6) k/uL MCHC (31.0-37.0) g/dL RDW (11.5-15.5) % Plt Count (150-450) k/uL Neutrophils # (Manual) (1.3-7.7) k/uL Monocytes # (Manual) (0-1.0) k/uL Myelocytes # (Manual) (0) k/uL ABG pH (7.35-7.45) ABG pCO2 (35-45) mmHg ABG pO2 (83-108) mmHg ABG HCO3 (21-25) mmol/L ABG Total CO2 (19-24) mmol/L ABG O2 Saturation (94-97) % Sodium (137-145) mmol/L Potassium (3.5-5.1) mmol/L Chloride (98-107) mmol/L Carbon Dioxide (22-30) mmol/L BUN (7-17) mg/dL Creatinine (0.52-1.04) mg/dL Glucose (74-99) mg/dL POC Glucose (mg/dL) 171 H 126 H 74 L (75-99) mg/dL Plasma Lactic Acid Iron (0.7-2.0) mmol/L Calcium (8.4-10.2) mg/dL AST (14-36) U/L ALT (9-52) U/L Alkaline Phosphatase (38-126) U/L Troponin I (0.000-0.034) ng/mL Total Protein (6.3-8.2) g/dL Albumin (3.5-5.0) g/dL Urine Opiates Screen (NotDetected) Ur Barbiturates Screen (NotDetected) Ur Amphetamines Screen (NotDetected) U Methamphetamines Scrn (NotDetected) U Benzodiazepines Scrn (NotDetected) Urine Cocaine Screen (NotDetected) U Marijuana (THC) Screen (NotDetected) 08/31/18 08/31/18 08/31/18 Range/Units 06:56 07:14 07:41 WBC (3.8-10.6) k/uL MCHC (31.0-37.0) g/dL RDW (11.5-15.5) % Plt Count (150-450) k/uL Neutrophils # (Manual) (1.3-7.7) k/uL Monocytes # (Manual) (0-1.0) k/uL Myelocytes # (Manual) (0) k/uL ABG pH (7.35-7.45) ABG pCO2 (35-45) mmHg ABG pO2 (83-108) mmHg ABG HCO3 (21-25) mmol/L ABG Total CO2 (19-24) mmol/L ABG O2 Saturation (94-97) % Sodium (137-145) mmol/L Potassium (3.5-5.1) mmol/L Chloride (98-107) mmol/L Carbon Dioxide (22-30) mmol/L BUN (7-17) mg/dL Creatinine (0.52-1.04) mg/dL Glucose (74-99) mg/dL POC Glucose (mg/dL) 145 H 119 H (75-99) mg/dL Plasma Lactic Acid Iron 7.3 H* (0.7-2.0) mmol/L Calcium (8.4-10.2) mg/dL AST (14-36) U/L ALT (9-52) U/L Alkaline Phosphatase (38-126) U/L Troponin I (0.000-0.034) ng/mL Total Protein (6.3-8.2) g/dL Albumin (3.5-5.0) g/dL Urine Opiates Screen (NotDetected) Ur Barbiturates Screen (NotDetected) Ur Amphetamines Screen (NotDetected) U Methamphetamines Scrn (NotDetected) U Benzodiazepines Scrn (NotDetected) Urine Cocaine Screen (NotDetected) U Marijuana (THC) Screen (NotDetected) 08/31/18 08/31/18 08/31/18 Range/Units 07:49 08:17 08:33 WBC (3.8-10.6) k/uL MCHC (31.0-37.0) g/dL RDW (11.5-15.5) % Plt Count (150-450) k/uL Neutrophils # (Manual) (1.3-7.7) k/uL Monocytes # (Manual) (0-1.0) k/uL Myelocytes # (Manual) (0) k/uL ABG pH (7.35-7.45) ABG pCO2 (35-45) mmHg ABG pO2 (83-108) mmHg ABG HCO3 (21-25) mmol/L ABG Total CO2 (19-24) mmol/L ABG O2 Saturation (94-97) % Sodium (137-145) mmol/L Potassium (3.5-5.1) mmol/L Chloride 112 H (98-107) mmol/L Carbon Dioxide 12 L (22-30) mmol/L BUN 54 H (7-17) mg/dL Creatinine 4.61 H (0.52-1.04) mg/dL Glucose 135 H (74-99) mg/dL POC Glucose (mg/dL) 23 L 151 H (75-99) mg/dL Plasma Lactic Acid Iron (0.7-2.0) mmol/L Calcium 6.9 L (8.4-10.2) mg/dL AST 507 H (14-36) U/L ALT 80 H (9-52) U/L Alkaline Phosphatase 163 H (38-126) U/L Troponin I (0.000-0.034) ng/mL Total Protein 5.4 L (6.3-8.2) g/dL Albumin 2.3 L (3.5-5.0) g/dL Urine Opiates Screen (NotDetected) Ur Barbiturates Screen (NotDetected) Ur Amphetamines Screen (NotDetected) U Methamphetamines Scrn (NotDetected) U Benzodiazepines Scrn (NotDetected) Urine Cocaine Screen (NotDetected) U Marijuana (THC) Screen (NotDetected) 08/31/18 08/31/18 08/31/18 Range/Units 09:01 10:07 10:34 WBC (3.8-10.6) k/uL MCHC (31.0-37.0) g/dL RDW (11.5-15.5) % Plt Count (150-450) k/uL Neutrophils # (Manual) (1.3-7.7) k/uL Monocytes # (Manual) (0-1.0) k/uL Myelocytes # (Manual) (0) k/uL ABG pH <7.00 L* (7.35-7.45) ABG pCO2 48 H (35-45) mmHg ABG pO2 141 H (83-108) mmHg ABG HCO3 8 L* (21-25) mmol/L ABG Total CO2 10 L (19-24) mmol/L ABG O2 Saturation 97.2 H (94-97) % Sodium (137-145) mmol/L Potassium (3.5-5.1) mmol/L Chloride (98-107) mmol/L Carbon Dioxide (22-30) mmol/L BUN (7-17) mg/dL Creatinine (0.52-1.04) mg/dL Glucose (74-99) mg/dL POC Glucose (mg/dL) 146 H 107 H (75-99) mg/dL Plasma Lactic Acid Iron (0.7-2.0) mmol/L Calcium (8.4-10.2) mg/dL AST (14-36) U/L ALT (9-52) U/L Alkaline Phosphatase (38-126) U/L Troponin I (0.000-0.034) ng/mL Total Protein (6.3-8.2) g/dL Albumin (3.5-5.0) g/dL Urine Opiates Screen (NotDetected) Ur Barbiturates Screen (NotDetected) Ur Amphetamines Screen (NotDetected) U Methamphetamines Scrn (NotDetected) U Benzodiazepines Scrn (NotDetected) Urine Cocaine Screen (NotDetected) U Marijuana (THC) Screen (NotDetected) 08/31/18 08/31/18 08/31/18 Range/Units 11:54 11:56 12:25 WBC (3.8-10.6) k/uL MCHC (31.0-37.0) g/dL RDW (11.5-15.5) % Plt Count (150-450) k/uL Neutrophils # (Manual) (1.3-7.7) k/uL Monocytes # (Manual) (0-1.0) k/uL Myelocytes # (Manual) (0) k/uL ABG pH (7.35-7.45) ABG pCO2 (35-45) mmHg ABG pO2 (83-108) mmHg ABG HCO3 (21-25) mmol/L ABG Total CO2 (19-24) mmol/L ABG O2 Saturation (94-97) % Sodium (137-145) mmol/L Potassium (3.5-5.1) mmol/L Chloride (98-107) mmol/L Carbon Dioxide (22-30) mmol/L BUN (7-17) mg/dL Creatinine (0.52-1.04) mg/dL Glucose (74-99) mg/dL POC Glucose (mg/dL) <20 L 55 L (75-99) mg/dL Plasma Lactic Acid Iron (0.7-2.0) mmol/L Calcium (8.4-10.2) mg/dL AST (14-36) U/L ALT (9-52) U/L Alkaline Phosphatase (38-126) U/L Troponin I 0.234 H* (0.000-0.034) ng/mL Total Protein (6.3-8.2) g/dL Albumin (3.5-5.0) g/dL Urine Opiates Screen (NotDetected) Ur Barbiturates Screen (NotDetected) Ur Amphetamines Screen (NotDetected) U Methamphetamines Scrn (NotDetected) U Benzodiazepines Scrn (NotDetected) Urine Cocaine Screen (NotDetected) U Marijuana (THC) Screen (NotDetected) 08/31/18 08/31/18 08/31/18 Range/Units 12:33 12:50 13:15 WBC (3.8-10.6) k/uL MCHC (31.0-37.0) g/dL RDW (11.5-15.5) % Plt Count (150-450) k/uL Neutrophils # (Manual) (1.3-7.7) k/uL Monocytes # (Manual) (0-1.0) k/uL Myelocytes # (Manual) (0) k/uL ABG pH (7.35-7.45) ABG pCO2 (35-45) mmHg ABG pO2 (83-108) mmHg ABG HCO3 (21-25) mmol/L ABG Total CO2 (19-24) mmol/L ABG O2 Saturation (94-97) % Sodium (137-145) mmol/L Potassium (3.5-5.1) mmol/L Chloride (98-107) mmol/L Carbon Dioxide (22-30) mmol/L BUN (7-17) mg/dL Creatinine (0.52-1.04) mg/dL Glucose (74-99) mg/dL POC Glucose (mg/dL) 36 L 40 L <20 L (75-99) mg/dL Plasma Lactic Acid Iron (0.7-2.0) mmol/L Calcium (8.4-10.2) mg/dL AST (14-36) U/L ALT (9-52) U/L Alkaline Phosphatase (38-126) U/L Troponin I (0.000-0.034) ng/mL Total Protein (6.3-8.2) g/dL Albumin (3.5-5.0) g/dL Urine Opiates Screen (NotDetected) Ur Barbiturates Screen (NotDetected) Ur Amphetamines Screen (NotDetected) U Methamphetamines Scrn (NotDetected) U Benzodiazepines Scrn (NotDetected) Urine Cocaine Screen (NotDetected) U Marijuana (THC) Screen (NotDetected) 08/31/18 08/31/18 08/31/18 Range/Units 13:18 13:48 14:01 WBC (3.8-10.6) k/uL MCHC (31.0-37.0) g/dL RDW (11.5-15.5) % Plt Count (150-450) k/uL Neutrophils # (Manual) (1.3-7.7) k/uL Monocytes # (Manual) (0-1.0) k/uL Myelocytes # (Manual) (0) k/uL ABG pH (7.35-7.45) ABG pCO2 (35-45) mmHg ABG pO2 (83-108) mmHg ABG HCO3 (21-25) mmol/L ABG Total CO2 (19-24) mmol/L ABG O2 Saturation (94-97) % Sodium (137-145) mmol/L Potassium (3.5-5.1) mmol/L Chloride (98-107) mmol/L Carbon Dioxide (22-30) mmol/L BUN (7-17) mg/dL Creatinine (0.52-1.04) mg/dL Glucose (74-99) mg/dL POC Glucose (mg/dL) 33 L 28 L 536 H (75-99) mg/dL Plasma Lactic Acid Iron (0.7-2.0) mmol/L Calcium (8.4-10.2) mg/dL AST (14-36) U/L ALT (9-52) U/L Alkaline Phosphatase (38-126) U/L Troponin I (0.000-0.034) ng/mL Total Protein (6.3-8.2) g/dL Albumin (3.5-5.0) g/dL Urine Opiates Screen (NotDetected) Ur Barbiturates Screen (NotDetected) Ur Amphetamines Screen (NotDetected) U Methamphetamines Scrn (NotDetected) U Benzodiazepines Scrn (NotDetected) Urine Cocaine Screen (NotDetected) U Marijuana (THC) Screen (NotDetected) 08/31/18 Range/Units 14:18 WBC (3.8-10.6) k/uL MCHC (31.0-37.0) g/dL RDW (11.5-15.5) % Plt Count (150-450) k/uL Neutrophils # (Manual) (1.3-7.7) k/uL Monocytes # (Manual) (0-1.0) k/uL Myelocytes # (Manual) (0) k/uL ABG pH (7.35-7.45) ABG pCO2 (35-45) mmHg ABG pO2 (83-108) mmHg ABG HCO3 (21-25) mmol/L ABG Total CO2 (19-24) mmol/L ABG O2 Saturation (94-97) % Sodium (137-145) mmol/L Potassium (3.5-5.1) mmol/L Chloride (98-107) mmol/L Carbon Dioxide (22-30) mmol/L BUN (7-17) mg/dL Creatinine (0.52-1.04) mg/dL Glucose (74-99) mg/dL POC Glucose (mg/dL) 471 H (75-99) mg/dL Plasma Lactic Acid Iron (0.7-2.0) mmol/L Calcium (8.4-10.2) mg/dL AST (14-36) U/L ALT (9-52) U/L Alkaline Phosphatase (38-126) U/L Troponin I (0.000-0.034) ng/mL Total Protein (6.3-8.2) g/dL Albumin (3.5-5.0) g/dL Urine Opiates Screen (NotDetected) Ur Barbiturates Screen (NotDetected) Ur Amphetamines Screen (NotDetected) U Methamphetamines Scrn (NotDetected) U Benzodiazepines Scrn (NotDetected) Urine Cocaine Screen (NotDetected) U Marijuana (THC) Screen (NotDetected) Microbiology - Last 24 Hours (Table) 08/31/18 03:33 Gram Stain - Preliminary Sputum Sputum Culture - Preliminary Thrombosis Risk Factor Assmnt - Choose All That Apply Any of the Below Risk Factors Present?: Yes Each Factor Represents 1 point: Abnormal pulmonary function (COPD), Age 41-60 years, Hx of IBD, Obesity (BMI >25), Serious lung disease incl. pneumonia (< 1month) Other Risk Factors: No Other congenital or acquired thrombophilia - If yes, enter type in comment: No Thrombosis Risk Factor Assessment Total Risk Factor Score: 5 Thrombosis Risk Factor Assessment Level: High Risk Assessment and Plan Plan: -acute hypoxic respiratory failure: Secondary to drug overdose continue with the ventilatory support as mentioned above -Shock multifactorial septic and hypovolemic can you with IV fluids and pressor support -Possibility of tricuspid valve endocarditis or aspiration pneumonia can use vancomycin and Zosyn, echocardiogram is being obtained -Drug overdose on multiple drugs -Severe anion gap non-anion gap metabolic acidosis secondary to severe sepsis, uremia, PICC continue with bicarbonate drip D5 -Severe hypoglycemia secondary to sepsis continue with the D5 probably D10 can be discontinued now that has blood sugars started going up -Acute kidney injury secondary to a neurotic acute tubular necrosis secondary to sepsis or possible hypotension -Elevated liver enzymes secondary to shock liver or May be related to chronic hepatitis C currently to monitor kidney function and liver function. -Possible anoxic injury to the brain CODE STATUS discussed the family patient is DO NOT RESUSCITATE at this time
[2018-08-31 14:57] LABS: Glucose,Whole Blood 373 mg/dL (75-99)
[2018-08-31] MEDS ORDERED: CISATRACURIUM 200 MG in SODIUM CHLORIDE 0.9% 180 ML IV SCH (15:00)
--- NOTE | 2018-08-31 15:00 | P.NPCON ---
History of Present Illness - Reason for Consult acute renal failure, metabolic acidosis - History of Present Illness reason for consultation: Acute kidney injury History of present illness: Patient is a 42-year-old female seen in renal consultation for acute kidney injury. Patient has no history of kidney disease. Creatinine in March 2018 was 0.7.on admission was 4.76 and is 4.61 today. Patient was found unresponsive for about one hour then she was found by the EMS.patient was given Narcan and w as noted to be hypoglycemic. She was then maintained on D10 and her blood sugars have improved. Patient was intubated by the EMS. She is currently intubated and sedated in the intensive care unit. She is on 100 mics of Levophed, 100 mics of phenylephrine and also maximum dose of vasopressin. She is maintained on isotonic sodium bicarbonate drip running at 200 mL an hour. She has received 8 A of bicarb IV push and 5 L of normal saline bolus. She is oliguric.echocardiogram reveals preserved ejection fraction. A 13 x 16 mm tricuspid valve vegetation is noted. Patient does have history of hepatitis C. Patient's drug screen was positive for opioids, barbiturates, amphetamines, metastatic remains, benzodiazepines, cocaine, and marijuana. Patient is noted to be in sinus tachycardia. She is on broad-spectrum antibiotics. Vital signs are unstable. Currently on multiple vasopressors. Tachycardic. General: The patient appeared well nourished and normally developed. HEENT: Head exam is unremarkable. Neck is without jugular venous distension. Intubated. LUNGS: Breath sounds decreased. Scattered rhonchi. HEART: Tachycardic. ABDOMEN: Soft. Bowel sounds present. EXTREMITITES: No edema. Discoloration/ischemic changes noted. Past Medical History Past Medical History: Asthma, COPD, Fibromyalgia Additional Past Medical History / Comment(s): chronic back pain, anxiety,depressive disorder migraines, heroin use .,several accidental drug overdoses.hep c, IBS, KIDNEY STONE History of Any Multi-Drug Resistant Organisms: MRSA Date of last positivie culture/infection: 01/02/16 MDRO Source:: RIGHT ARM Past Surgical History: Section, Cholecystectomy, Orthopedic Surgery Additional Past Surgical History / Comment(s): d & c's, hand surg,rt wrist surg 3 years ago d/t fx has hardware, tubal ligation, hepatitus c Past Anesthesia/Blood Transfusion Reactions: Previous Problems w/ Anesthesia Additional Past Anesthesia/Blood Transfusion Reaction / Comment(s): unsure of the reaction, CLAUSTERPHOBIA Past Psychological History: ADD/ADHD, Anxiety, Depression, Panic Disorder Smoking Status: Current every day smoker Past Alcohol Use History: Rare Past Drug Use History: Marijuana - Past Family History Mother Family Medical History: Cancer Additional Family Medical History / Comment(s): Mother had cancer removed from her back. Mother recently had PCI with stents. She had a VT at the age of 50yrs. Father Additional Family Medical History / Comment(s): ETOH ABUSE Medications and Allergies Home Medications Medication Instructions Recorded Confirmed Type Albuterol Inhaler [Ventolin Hfa 2 puff INHALATION RT-Q4H PRN 08/31/18 08/31/18 History Inhaler] Butalbital/Aspirin/Caffeine 1 cap PO Q6H PRN 08/31/18 08/31/18 History [Fiorinal 50-325-40 MG] Gabapentin [Neurontin] 800 mg PO TID 08/31/18 08/31/18 History Ibuprofen [Motrin] 800 mg PO TID PRN 08/31/18 08/31/18 History Lisinopril [Prinivil] 5 mg PO DAILY 08/31/18 08/31/18 History tiZANidine HCL [Zanaflex] 2 mg PO TID PRN 08/31/18 08/31/18 History Allergies Allergy/AdvReac Type Severity Reaction Status Date / Time codeine Allergy Rash/Hives Verified 08/31/18 02:54 Penicillins Allergy Unknown Verified 08/31/18 02:54 Childhood Physical Exam Vitals: Vital Signs Temp Pulse Resp BP Pulse Ox 08/31/18 14:10 140 H 30 H 115/77 96 08/31/18 14:00 138 H 32 H 115/78 96 08/31/18 13:50 138 H 30 H 120/89 97 08/31/18 13:40 133 H 30 H 125/56 96 08/31/18 13:30 102.8 F H 140 H 28 H 114/74 96 08/31/18 13:20 141 H 29 H 98/58 96 08/31/18 13:10 140 H 30 H 119/77 96 08/31/18 13:00 140 H 30 H 103/73 97 08/31/18 12:50 141 H 30 H 88/47 94 L 08/31/18 12:40 141 H 29 H 94/42 96 08/31/18 12:30 141 H 29 H 94/44 96 08/31/18 12:20 138 H 27 H 76/56 95 08/31/18 12:10 142 H 27 H 111/71 98 08/31/18 12:00 102.9 F H 144 H 27 H 76/56 98 08/31/18 11:50 144 H 26 H 100/66 98 08/31/18 11:40 146 H 26 H 93/48 98 08/31/18 11:30 146 H 26 H 97/57 98 08/31/18 11:20 146 H 26 H 98/44 98 08/31/18 11:10 146 H 26 H 90/54 98 08/31/18 11:00 103.0 F H 146 H 21 105/55 98 08/31/18 10:50 144 H 26 H 111/74 99 08/31/18 10:40 135 H 4 L 97 08/31/18 10:30 135 H 11 L 96/42 96 08/31/18 10:20 137 H 4 L 129/65 95 08/31/18 10:10 140 H 6 L 124/109 98 08/31/18 10:00 103.0 F H 138 H 36 H 112/77 92 L 08/31/18 09:50 138 H 36 H 128/76 90 L 08/31/18 09:40 138 H 37 H 90 L 08/31/18 09:30 138 H 36 H 102/42 90 L 08/31/18 09:20 137 H 37 H 98/44 89 L 08/31/18 09:10 135 H 37 H 97/49 91 L 08/31/18 09:00 102.6 F H 135 H 38 H 110/53 92 L 08/31/18 08:50 135 H 37 H 110/57 90 L 08/31/18 08:30 135 H 29 H 108/72 90 L 08/31/18 08:15 137 H 35 H 104/73 95 08/31/18 08:00 101.6 F H 138 H 35 H 102/71 94 L 08/31/18 07:45 137 H 35 H 91/70 96 08/31/18 07:30 135 H 31 H 96/61 97 08/31/18 07:15 134 H 27 H 88/58 95 08/31/18 07:00 123 H 33 H 68/44 80 L 08/31/18 06:45 124 H 33 H 57/31 79 L 08/31/18 06:00 124 H 36 H 229/207 87 L 08/31/18 05:37 130 H 30 H 194/136 91 L 08/31/18 05:15 133 H 36 H 83/45 88 L 08/31/18 05:00 131 H 38 H 86/52 80 L 08/31/18 04:45 133 H 38 H 65/21 81 L 08/31/18 04:30 134 H 37 H 53/33 86 L 08/31/18 04:29 99.6 F 08/31/18 04:00 120 H 38 H 87/45 98 08/31/18 03:45 137 H 39 H 101/91 84 L 08/31/18 03:30 138 H 38 H 87/58 87 L 08/31/18 03:15 140 H 38 H 97/83 86 L 08/31/18 02:48 97.4 F L 140 H 13 120/92 94 L Intake and Output 08/30/18 08/31/18 08/31/18 22:59 06:59 14:59 Intake Total 3.823 2983.707 Output Total 30 0 Balance -26.177 2983.707 Intake: IV 2842.27 ACETAMINOPHEN IV (For NPO 100 ) 1,000 mg In Empty Bag 1 bag @ 400 mls/hr IVPB Q6HR PRN Rx#:[id number] Dextrose 10% in Water 1, 225 000 ml @ 75 mls/hr IV . [id number] [facility] Rx#:[id number] Dextrose 5%-0.45% NaCl 1, 600 000 ml @ 100 mls/hr IV . Q10H [facility] Rx#:[id number] Phenylephrine 40 mg In 395 Sodium Chloride 0.9% 250 ml @ 2 MCG/KG/MIN 79.496 mls/hr IV .Q3H12M [facility] Rx# :[id number] Sodium Chloride 0.9% 1, 1000 000 ml @ 999 mls/hr IV . Q1H1M [facility] Rx#:[id number] Sodium Chloride 0.9% 150 13.77 ml @ 0.03 UNITS/MIN 4.59 mls/hr IV .Q24H [facility] with Vasopressin 60 unit Rx#: [id number] Vancomycin 1,750 mg In 501 Sodium Chloride 0.9% 500 ml 500 ml @ 167 mls/hr IVPB ONCE ONE Rx#: [id number] fentaNYL (PF) 1,000 mcg 7.5 In Sodium Chloride 0.9% 80 ml @ 25 MCG/HR 2.5 mls /hr IV .Q24H [facility] Rx#: [id number] Intake, IV Titration 3.823 141.437 Amount Norepinephrine 32 mg In 3.823 141.437 Sodium Chloride 0.9% 218 ml @ 0.05 MCG/KG/MIN 2. 445 mls/hr IV .Q24H [facility] Rx#:[id number] Output: Urine 30 0 Straight 30 Other: Weight 104.326 kg ABP, PAP, CO, CI - Last 8 Hours Arterial Blood Pressure 190/186 Results - Lab Results Most recent lab results ABG pH <7.00 (7.35-7.45) L* 08/31/18 10:34 ABG pCO2 48 mmHg (35-45) H 08/31/18 10:34 ABG pO2 141 mmHg (83-108) H 08/31/18 10:34 ABG HCO3 8 mmol/L (21-25) L* 08/31/18 10:34 ABG O2 Saturation 97.2 % (94-97) H 08/31/18 10:34 Calcium 6.9 mg/dL (8.4-10.2) L 08/31/18 07:49 Magnesium 2.3 mg/dL (1.6-2.3) 08/31/18 07:49 08/31/18 03:20 08/31/18 07:49 Assessment and Plan Plan: assessment: 1. Oliguric acute kidney injury secondary to ATN secondary to septic shock and hemodynamic instability. Creatinine 4.7. Baseline creatinine near 1. 2. 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 Maintained on broad-spectrum antibiotics. 3. Severe metabolic acidosis secondary to acute kidney injury lactic acidosis. I will check an osmolar gap as well. 4. Polysubstance drug abuse. 5. History of hepatitis C. 6. Hypoglycemia status post D10 drip. Better. plan: Maintain bicarb drip to be run at 200 mL an hour. Check UA. Follow-up cultures. Check osmolar gap. I will also start her on fomepizole and check levels of volatile alcohols. Patient is hemodynamically too unstable for any form of renal replacement therapy at this time. Will continue to assess on day-to-day basis. Overall prognosis guarded. Patient is now DO NOT RESUSCITATE. Discussed with family present at bedside. Thank you for the consultation. I will continue to follow the patient with you during her hospital stay.
--- NOTE | 2018-08-31 15:02 | P.CRDCN ---
History of Present Illness Consult date: 08/31/18 Chief complaint: Change in mental status History of present illness: This is a 42-year-old female patient I requested to see as a consult in the intensive care unit for tachycardia. The patient currently is intubated and she is on mechanical ventilation. The history was taken from the chart as well as from the nurse was taking care of the patient. Apparently the patient does have a history of drug abuse. She was brought by ambulance this veterinary medicine teacher to the emergency room. Ambulance was notified that the patient was unresponsive and at that point the patient was intubated on the scene and she was brought to the emergency room. She was given Narcan. She continues to be unresponsive after the Narcan. She was found to be hypotensive, tachycardic, and hypoglycemic. At that point she was started on vasopressors was norepinephrine and she was admitted to the intensive care unit. It was noted that the patient does have severe metabolic acidosis with pH around 7. Her first set of troponin was elevated. We don't have any more sets of troponin on her. Beside that the plasma lactic acid came in to be about 7. WBC was elevated. Creatinine was 4.61. Liver enzymes were elevated. I did review her EKG which seems to show ev idence of sinus tachycardia without any ischemic ST or T-wave abnormalities. I did talk to the patient's mother at bedside who stated that the patient has been using drugs but there is no established history of coronary artery disease or congestive heart failure or any cardiac arrhythmia and she never seen a library director in the past. The patient's mother herself does have severe history of coronary artery disease. The patient was found to be positive for drug screen for multiple drugs. Past Medical History Past Medical History: Asthma, COPD, Fibromyalgia Additional Past Medical History / Comment(s): chronic back pain, anxiet y,depressive disorder migraines, heroin use .,several accidental drug overdoses.hep c, IBS, KIDNEY STONE History of Any Multi-Drug Resistant Organisms: MRSA Date of last positivie culture/infection: 01/02/16 MDRO Source:: RIGHT ARM Past Surgical History: Section, Cholecystectomy, Orthopedic Surgery Additional Past Surgical History / Comment(s): d & c's, hand surg,rt wrist surg 3 years ago d/t fx has hardware, tubal ligation, hepatitus c Past Anesthesia/Blood Transfusion Reactions: Previous Problems w/ Anesthesia Additional Past Anesthesia/Blood Transfusion Reaction / Comment(s): unsure of the reaction, CLAUSTERPHOBIA Past Psychological History: ADD/ADHD, Anxiety, Depression, Panic Disorder Smoking Status: Current every day smoker Past Alcohol Use History: Rare Past Drug Use History: Marijuana - Past Family History Mother Family Medical History: Cancer Additional Family Medical History / Comment(s): Mother had cancer removed from her back. Mother recently had PCI with stents. She had a CO at the age of 50yrs. Father Additional Family Medical History / Comment(s): ETOH ABUSE Medications and Allergies Home Medications Medication Instructions Recorded Confirmed Type Albuterol Inhaler [Ventolin Hfa 2 puff INHALATION RT-Q4H PRN 08/31/18 08/31/18 History Inhaler] Butalbital/Aspirin/Caffeine 1 cap PO Q6H PRN 08/31/18 08/31/18 History [Fiorinal 50-325-40 MG] Gabapentin [Neurontin] 800 mg PO TID 08/31/18 08/31/18 History Ibuprofen [Motrin] 800 mg PO TID PRN 08/31/18 08/31/18 History Lisinopril [Prinivil] 5 mg PO DAILY 08/31/18 08/31/18 History tiZANidine HCL [Zanaflex] 2 mg PO TID PRN 08/31/18 08/31/18 History Allergies Allergy/AdvReac Type Severity Reaction Status Date / Time codeine Allergy Rash/Hives Verified 08/31/18 02:54 Penicillins Allergy Unknown Verified 08/31/18 02:54 Childhood Physical Exam Vitals: Vital Signs Temp Pulse Resp BP Pulse Ox 08/31/18 14:10 140 H 30 H 115/77 96 08/31/18 14:00 138 H 32 H 115/78 96 08/31/18 13:50 138 H 30 H 120/89 97 08/31/18 13:40 133 H 30 H 125/56 96 08/31/18 13:30 102.8 F H 140 H 28 H 114/74 96 08/31/18 13:20 141 H 29 H 98/58 96 08/31/18 13:10 140 H 30 H 119/77 96 08/31/18 13:00 140 H 30 H 103/73 97 08/31/18 12:50 141 H 30 H 88/47 94 L 08/31/18 12:40 141 H 29 H 94/42 96 08/31/18 12:30 141 H 29 H 94/44 96 08/31/18 12:20 138 H 27 H 76/56 95 08/31/18 12:10 142 H 27 H 111/71 98 08/31/18 12:00 102.9 F H 144 H 27 H 76/56 98 08/31/18 11:50 144 H 26 H 100/66 98 08/31/18 11:40 146 H 26 H 93/48 98 08/31/18 11:30 146 H 26 H 97/57 98 08/31/18 11:20 146 H 26 H 98/44 98 08/31/18 11:10 146 H 26 H 90/54 98 08/31/18 11:00 103.0 F H 146 H 21 105/55 98 08/31/18 10:50 144 H 26 H 111/74 99 08/31/18 10:40 135 H 4 L 97 08/31/18 10:30 135 H 11 L 96/42 96 08/31/18 10:20 137 H 4 L 129/65 95 08/31/18 10:10 140 H 6 L 124/109 98 08/31/18 10:00 103.0 F H 138 H 36 H 112/77 92 L 08/31/18 09:50 138 H 36 H 128/76 90 L 08/31/18 09:40 138 H 37 H 90 L 08/31/18 09:30 138 H 36 H 102/42 90 L 08/31/18 09:20 137 H 37 H 98/44 89 L 08/31/18 09:10 135 H 37 H 97/49 91 L 08/31/18 09:00 102.6 F H 135 H 38 H 110/53 92 L 08/31/18 08:50 135 H 37 H 110/57 90 L 08/31/18 08:30 135 H 29 H 108/72 90 L 08/31/18 08:15 137 H 35 H 104/73 95 08/31/18 08:00 101.6 F H 138 H 35 H 102/71 94 L 08/31/18 07:45 137 H 35 H 91/70 96 08/31/18 07:30 135 H 31 H 96/61 97 08/31/18 07:15 134 H 27 H 88/58 95 08/31/18 07:00 123 H 33 H 68/44 80 L 08/31/18 06:45 124 H 33 H 57/31 79 L 08/31/18 06:00 124 H 36 H 229/207 87 L 08/31/18 05:37 130 H 30 H 194/136 91 L 08/31/18 05:15 133 H 36 H 83/45 88 L 08/31/18 05:00 131 H 38 H 86/52 80 L 08/31/18 04:45 133 H 38 H 65/21 81 L 08/31/18 04:30 134 H 37 H 53/33 86 L 08/31/18 04:29 99.6 F 08/31/18 04:00 120 H 38 H 87/45 98 08/31/18 03:45 137 H 39 H 101/91 84 L 08/31/18 03:30 138 H 38 H 87/58 87 L 08/31/18 03:15 140 H 38 H 97/83 86 L 08/31/18 02:48 97.4 F L 140 H 13 120/92 94 L Intake and Output 08/30/18 08/31/18 08/31/18 22:59 06:59 14:59 Intake Total 3.823 3269.797 Output Total 30 0 Balance -26.177 3269.797 Intake: IV 3128.36 ACETAMINOPHEN IV (For NPO 100 ) 1,000 mg In Empty Bag 1 bag @ 400 mls/hr IVPB Q6HR PRN Rx#:[id number] Dextrose 10% in Water 1, 225 000 ml @ 75 mls/hr IV . [id number] [facility] Rx#:[id number] Dextrose 5%-0.45% NaCl 1, 600 000 ml @ 100 mls/hr IV . Q10H ONE Rx#:[id number] Dextrose 5%-0.45% NaCl 1, 200 000 ml @ 200 mls/hr IV . Q5H45M ONE with Sodium Bicarb (1 Meq/ml) 150 ml Rx#:[id number] Phenylephrine 40 mg In 474 Sodium Chloride 0.9% 250 ml @ 2 MCG/KG/MIN 79.496 mls/hr IV .Q3H12M [facility] Rx# :[id number] Sodium Chloride 0.9% 1, 1000 000 ml @ 999 mls/hr IV . Q1H1M [facility] Rx#:[id number] Sodium Chloride 0.9% 150 18.36 ml @ 0.03 UNITS/MIN 4.59 mls/hr IV .Q24H [facility] with Vasopressin 60 unit Rx#: [id number] Vancomycin 1,750 mg In 501 Sodium Chloride 0.9% 500 ml 500 ml @ 167 mls/hr IVPB ONCE ONE Rx#: [id number] fentaNYL (PF) 1,000 mcg 10.0 In Sodium Chloride 0.9% 80 ml @ 25 MCG/HR 2.5 mls /hr IV .Q24H [facility] Rx#: [id number] Intake, IV Titration 3.823 141.437 Amount Norepinephrine 32 mg In 3.823 141.437 Sodium Chloride 0.9% 218 ml @ 0.05 MCG/KG/MIN 2. 445 mls/hr IV .Q24H [facility] Rx#:[id number] Output: Urine 30 0 Straight 30 Other: Weight 104.326 kg ABP, PAP, CO, CI - Last 8 Hours Arterial Blood Pressure 190/186 - Constitutional General appearance: no acute distress - Respiratory Respiratory: bilateral: diminished - Cardiovascular Rhythm: regular Heart sounds: normal: S1, S2 Results 08/31/18 03:20 08/31/18 07:49 Cardiac Enzymes 08/31/18 08/31/18 08/31/18 Range/Units 03:20 03:20 07:49 AST 97 H 507 H (14-36) U/L Troponin I 0.169 H* (0.000-0.034) ng/mL 08/31/18 Range/Units 12:25 AST (14-36) U/L Troponin I 0.234 H* (0.000-0.034) ng/mL CBC 08/31/18 Range/Units 03:20 WBC 25.0 H (3.8-10.6) k/uL RBC 4.26 (3.80-5.40) m/uL Hgb 11.6 (11.4-16.0) gm/dL Hct 38.8 (34.0-46.0) % Plt Count 123 L (150-450) k/uL Comprehensive Metabolic Panel 08/31/18 08/31/18 Range/Units 03:20 07:49 Sodium 136 L 140 (137-145) mmol/L Potassium 5.2 H 4.5 (3.5-5.1) mmol/L Chloride 104 112 H (98-107) mmol/L Carbon Dioxide 9 L* 12 L (22-30) mmol/L BUN 54 H 54 H (7-17) mg/dL Creatinine 4.76 H 4.61 H (0.52-1.04) mg/dL Glucose 97 135 H (74-99) mg/dL Calcium 9.0 6.9 L (8.4-10.2) mg/dL AST 97 H 507 H (14-36) U/L ALT 35 80 H (9-52) U/L Alkaline Phosphatase 172 H 163 H (38-126) U/L Total Protein 6.7 5.4 L (6.3-8.2) g/dL Albumin 3.0 L 2.3 L (3.5-5.0) g/dL Current Medications Generic Name Dose Route Start Last Admin Trade Name Freq PRN Reason Stop Dose Admin Acetaminophen 650 mg 08/31/18 05:47 Tylenol Suppository RECTAL Q4HR PRN Fever And/ Or Mild Pain Artificial Tears 1 drops 08/31/18 05:47 Artificial Tear Drops BOTH EYES Q4HR PRN Dry Eye(s) Dextrose/Water 50 ml 08/31/18 12:51 08/31/18 12:56 Dextrose 50% Syringe IVP 50 ml ONCE PRN Administration CBG < 70 mg/dL Famotidine 20 mg 09/01/18 09:00 Pepcid IV Q24HR [facility] Hydrocortisone Sodium Succinate 100 mg 08/31/18 10:00 08/31/18 11:02 Solu-Cortef IV 100 mg Q8HR [facility] Administration Norepinephrine Bitartrate 32 250 mls @ 2.445 mls/hr 08/31/18 04:45 08/31/18 12:00 mg/ Sodium Chloride IV 1 mcg/kg/min .Q24H [facility] 48.903 mls/hr Titration Protocol 0.05 MCG/KG/MIN Sodium Chloride 1,000 mls @ 75 mls/hr 08/31/18 06:00 08/31/18 07:08 Saline 0.9% IV 75 mls/hr .[id number] [facility] Administration Phenylephrine HCl 40 mg/ 254 mls @ 79.496 mls/hr 08/31/18 07:00 08/31/18 07:15 Sodium Chloride IV 2 mcg/kg/min .Q3H12M [facility] 79.496 mls/hr Administration Protocol 2 MCG/KG/MIN Acetaminophen 1,000 mg/ IV 100 mls @ 400 mls/hr 08/31/18 08:30 08/31/18 09:30 Solution IVPB 09/01/18 00:14 400 mls/hr Q6HR PRN Administration Fever Sodium Bicarbonate 150 ml/ 1,150 mls @ 200 mls/hr 08/31/18 09:25 08/31/18 10:03 Dextrose/Sodium Chloride IV 08/31/18 15:09 100 mls/hr .Q5H45M [facility] Administration Dextrose/Water 1,000 mls @ 75 mls/hr 08/31/18 10:15 08/31/18 11:46 Dextrose 10%-Water Iv Soln IV 50 mls/hr .[id number] [facility] Administration Levofloxacin/Dextrose 250 mg/ 50 mls @ 50 mls/hr 09/02/18 06:00 IV Solution IVPB Q48H [facility] Vasopressin 60 unit/ Sodium 153 mls @ 4.59 mls/hr 08/31/18 11:00 08/31/18 11:20 Chloride IV 4.59 mls/hr .Q24H [facility] Administration 0.03 UNITS/MIN Fentanyl Citrate 1,000 mcg/ 100 mls @ 2.5 mls/hr 08/31/18 11:00 08/31/18 11:20 Sodium Chloride IV 25 mcg/hr .Q24H [facility] 2.5 mls/hr Administration 25 MCG/HR Vancomycin HCl 1,750 mg/ 500 mls @ 167 mls/hr 08/31/18 12:00 08/31/18 11:37 Sodium Chloride IVPB 08/31/18 14:59 167 mls/hr ONCE ONE Administration Cisatracurium Besylate 200 mg/ 200 mls @ 6.26 mls/hr 08/31/18 15:00 Sodium Chloride IV .Q24H [facility] Protocol 1 MCG/KG/MIN Miscellaneous Information 1 each 08/31/18 10:49 Pharmacy To Dose Iv Vancomycin MISCELLANE DIRECTED PRN Per Protocol Naloxone HCl 0.2 mg 08/31/18 05:47 Narcan IV Q2M PRN Opioid Reversal Intake and Output 08/30/18 08/31/18 08/31/18 22:59 06:59 14:59 Intake Total 3.823 3269.797 Output Total 30 0 Balance -26.177 3269.797 Intake: IV 3128.36 ACETAMINOPHEN IV (For NPO 100 ) 1,000 mg In Empty Bag 1 bag @ 400 mls/hr IVPB Q6HR PRN Rx#:[id number] Dextrose 10% in Water 1, 225 000 ml @ 75 mls/hr IV . [id number] [facility] Rx#:[id number] Dextrose 5%-0.45% NaCl 1, 600 000 ml @ 100 mls/hr IV . Q10H [facility] Rx#:[id number] Dextrose 5%-0.45% NaCl 1, 200 000 ml @ 200 mls/hr IV . Q5H45M [facility] with Sodium Bicarb (1 Meq/ml) 150 ml Rx#:[id number] Phenylephrine 40 mg In 474 Sodium Chloride 0.9% 250 ml @ 2 MCG/KG/MIN 79.496 mls/hr IV .Q3H12M [facility] Rx# :[id number] Sodium Chloride 0.9% 1, 1000 000 ml @ 999 mls/hr IV . Q1H1M [facility] Rx#:[id number] Sodium Chloride 0.9% 150 18.36 ml @ 0.03 UNITS/MIN 4.59 mls/hr IV .Q24H [facility] with Vasopressin 60 unit Rx#: [id number] Vancomycin 1,750 mg In 501 Sodium Chloride 0.9% 500 ml 500 ml @ 167 mls/hr IVPB ONCE [facility] Rx#: [id number] fentaNYL (PF) 1,000 mcg 10.0 In Sodium Chloride 0.9% 80 ml @ 25 MCG/HR 2.5 mls /hr IV .Q24H [facility] Rx#: [id number] Intake, IV Titration 3.823 141.437 Amount Norepinephrine 32 mg In 3.823 141.437 Sodium Chloride 0.9% 218 ml @ 0.05 MCG/KG/MIN 2. 445 mls/hr IV .Q24H [facility] Rx#:[id number] Output: Urine 30 0 Straight 30 Other: Weight 104.326 kg 08/31/18 03:20 05/10/19 07:49 Assessment and Plan Assessment: Assessment #1 acute hypoxic respiratory failure #2 septic shock #3 drug abuse with multiple drugs #4 acute renal failure #5 acute non-ST elevation myocardial infarction #6 multiple comorbid conditions Plan #1 obtain an echocardiogram was Doppler #2 serial cardiac enzymes #3 continue supporting the blood pressure #4 follow-up with the patient. Thank you for allowing us participate in her care
[2018-08-31 16:16] LABS: Glucose,Whole Blood 301 mg/dL (75-99)
--- NOTE | 2018-08-31 16:51 | P.CNNES ---
History of Present Illness Consult date: 08/31/18 Reason for Consult: Altered mental status History of Present Illness: Patient is a 42-year-old female with history of heroine use, was brought to the hospital after she was found to be unresponsive. Patient was at her friend's house and per EMS flow sheet, they were called for patient being unresponsive. Patient was laying on the floor. Patient was cool and diaphoretic and was half naked. Patient was found with IV track melendez on arms and heroine needle. Patient has nonreactive dilated pupils. Her glucose initially was 41. Patient was at friend's house who did not know any medical or drug use history. It was estimated patient's downtime of 1 hour before EMS was called. Her boyfriend later confessed that he heard a fall and patient was not responsive. Patient's blood pressure was 141/89 pulse rate 129, saturation 80% and blood pressure 141. Her GCS was 6. Patient was given dextrose and Narcan without improvement. Patient was intubated on the scene. Patient underwent computed tomography scan of the head, which revealed no acute process. Chest x-ray showed increased opacity in the right lower lobe, correlate with aspiration or atelectasis. Echo showed normal left ventricular ejection fraction 60-65%. Her urine drug screen was positive for opiates, barbiturates, amphetamines, methamphetamine, benzodiazepine, cocaine and marijuana. Her blood test shows normal electrolytes, BU and is 54 creatinine 4.61. TSH is normal. Liver functions are elevated with AST 507, ALP 80. CBC with WBC 25,000 hemoglobin 11.6 and platelets 123. PT/PTT is normal. Patient at present is on high-dose Levophed 100 g, and Javon 100 g, vasopressin 0.03, fentanyl 25 g per hour. No seizures have been noted. According to patient's mother, patient has history of heroin use, but she was screened for 3-4 months. She has been depressed, as she broke up with her boyfriend. Uncertain if drug overdose was accidental or suicidal. Review of Systems ROS unobtainable: due to endotracheal tube, due to mental status Past Medical History Past Medical History: Asthma, COPD, Fibromyalgia Additional Past Medical History / Comment(s): chronic back pain, anxiety,depressive disorder migraines, heroin use .,several accidental drug ov erdoses.hep c, IBS, KIDNEY STONE History of Any Multi-Drug Resistant Organisms: MRSA Date of last positivie culture/infection: 01/02/16 MDRO Source:: RIGHT ARM Past Surgical History: Section, Cholecystectomy, Orthopedic Surgery Additional Past Surgical History / Comment(s): d & c's, hand surg,rt wrist surg 3 years ago d/t fx has hardware, tubal ligation, hepatitus c Past Anesthesia/Blood Transfusion Reactions: Previous Problems w/ Anesthesia Additional Past Anesthesia/Blood Transfusion Reaction / Comment(s): unsure of the reaction, CLAUSTERPHOBIA Past Psychological History: ADD/ADHD, Anxiety, Depression, Panic Disorder Smoking Status: Current every day smoker Past Alcohol Use History: Rare Past Drug Use History: Marijuana - Past Family History Mother Family Medical History: Cancer Additional Family Medical History / Comment(s): Mother had cancer removed from her back. Mother recently had PCI with stents. She had a NC at the age of 50yrs. Father Additional Family Medical History / Comment(s): ETOH ABUSE Medications and Allergies Home Medications Medication Instructions Recorded Confirmed Type Albuterol Inhaler [Ventolin Hfa 2 puff INHALATION RT-Q4H PRN 08/31/18 08/31/18 History Inhaler] Butalbital/Aspirin/Caffeine 1 cap PO Q6H PRN 08/31/18 08/31/18 History [Fiorinal 50-325-40 MG] Gabapentin [Neurontin] 800 mg PO TID 08/31/18 08/31/18 History Ibuprofen [Motrin] 800 mg PO TID PRN 08/31/18 08/31/18 History Lisinopril [Prinivil] 5 mg PO DAILY 08/31/18 08/31/18 History tiZANidine HCL [Zanaflex] 2 mg PO TID PRN 08/31/18 08/31/18 History Allergies Allergy/AdvReac Type Severity Reaction Status Date / Time codeine Allergy Rash/Hives Verified 08/31/18 02:54 Penicillins Allergy Unknown Verified 08/31/18 02:54 Childhood Physical Examination - Vital Signs Vital Signs: Vital Signs Temp Pulse Resp BP Pulse Ox 08/31/18 15:45 138 H 32 H 123/78 98 08/31/18 15:30 138 H 33 H 98/52 08/31/18 15:15 102.1 F H 138 H 30 H 96/69 08/31/18 15:00 138 H 31 H 90/73 98 08/31/18 14:45 138 H 31 H 112/48 97 08/31/18 14:30 140 H 30 H 104/50 97 08/31/18 14:15 140 H 30 H 115/63 97 08/31/18 14:10 140 H 30 H 115/77 96 08/31/18 14:00 138 H 32 H 115/78 96 08/31/18 13:50 138 H 30 H 120/89 97 08/31/18 13:40 133 H 30 H 125/56 96 08/31/18 13:30 102.8 F H 140 H 28 H 114/74 96 08/31/18 13:20 141 H 29 H 98/58 96 08/31/18 13:10 140 H 30 H 119/77 96 08/31/18 13:00 140 H 30 H 103/73 97 08/31/18 12:50 141 H 30 H 88/47 94 L 08/31/18 12:40 141 H 29 H 94/42 96 08/31/18 12:30 141 H 29 H 94/44 96 08/31/18 12:20 138 H 27 H 76/56 95 08/31/18 12:10 142 H 27 H 111/71 98 08/31/18 12:00 102.9 F H 144 H 27 H 76/56 98 08/31/18 11:50 144 H 26 H 100/66 98 08/31/18 11:40 146 H 26 H 93/48 98 08/31/18 11:30 146 H 26 H 97/57 98 08/31/18 11:20 146 H 26 H 98/44 98 08/31/18 11:10 146 H 26 H 90/54 98 08/31/18 11:00 103.0 F H 146 H 21 105/55 98 08/31/18 10:50 144 H 26 H 111/74 99 08/31/18 10:40 135 H 4 L 97 08/31/18 10:30 135 H 11 L 96/42 96 08/31/18 10:20 137 H 4 L 129/65 95 08/31/18 10:10 140 H 6 L 124/109 98 08/31/18 10:00 103.0 F H 138 H 36 H 112/77 92 L 08/31/18 09:50 138 H 36 H 128/76 90 L 08/31/18 09:40 138 H 37 H 90 L 08/31/18 09:30 138 H 36 H 102/42 90 L 08/31/18 09:20 137 H 37 H 98/44 89 L 08/31/18 09:10 135 H 37 H 97/49 91 L 08/31/18 09:00 102.6 F H 135 H 38 H 110/53 92 L 08/31/18 08:50 135 H 37 H 110/57 90 L 08/31/18 08:30 135 H 29 H 108/72 90 L 08/31/18 08:15 137 H 35 H 104/73 95 08/31/18 08:00 101.6 F H 138 H 35 H 102/71 94 L 08/31/18 07:45 137 H 35 H 91/70 96 08/31/18 07:30 135 H 31 H 96/61 97 08/31/18 07:15 134 H 27 H 88/58 95 08/31/18 07:00 123 H 33 H 68/44 80 L 08/31/18 06:45 124 H 33 H 57/31 79 L 08/31/18 06:00 124 H 36 H 229/207 87 L 08/31/18 05:37 130 H 30 H 194/136 91 L 08/31/18 05:15 133 H 36 H 83/45 88 L 08/31/18 05:00 131 H 38 H 86/52 80 L 08/31/18 04:45 133 H 38 H 65/21 81 L 08/31/18 04:30 134 H 37 H 53/33 86 L 08/31/18 04:29 99.6 F 08/31/18 04:00 120 H 38 H 87/45 98 08/31/18 03:45 137 H 39 H 101/91 84 L 08/31/18 03:30 138 H 38 H 87/58 87 L 08/31/18 03:15 140 H 38 H 97/83 86 L 08/31/18 02:48 97.4 F L 140 H 13 120/92 94 L Intake and Output 08/31/18 08/31/18 08/31/18 06:59 14:59 22:59 Intake Total 3.823 3269.797 Output Total 30 0 0 Balance -26.177 3269.797 0 Intake: IV 3128.36 ACETAMINOPHEN IV (For NPO 100 ) 1,000 mg In Empty Bag 1 bag @ 400 mls/hr IVPB Q6HR PRN Rx#:[id number] Dextrose 10% in Water 1, 225 000 ml @ 75 mls/hr IV . [id number] CANDIDA Rx#:[id number] Dextrose 5%-0.45% NaCl 1, 600 000 ml @ 100 mls/hr IV . Q10H ONE Rx#:[id number] Dextrose 5%-0.45% NaCl 1, 200 000 ml @ 200 mls/hr IV . Q5H45M ONE with Sodium Bicarb (1 Meq/ml) 150 ml Rx#:[id number] Phenylephrine 40 mg In 474 Sodium Chloride 0.9% 250 ml @ 2 MCG/KG/MIN 79.496 mls/hr IV .Q3H12M CANDIDA Rx# :[id number] Sodium Chloride 0.9% 1, 1000 000 ml @ 999 mls/hr IV . Q1H1M STA Rx#:[id number] Sodium Chloride 0.9% 150 18.36 ml @ 0.03 UNITS/MIN 4.59 mls/hr IV .Q24H CANDIDA with Vasopressin 60 unit Rx#: [id number] Vancomycin 1,750 mg In 501 Sodium Chloride 0.9% 500 ml 500 ml @ 167 mls/hr IVPB ONCE ONE Rx#: [id number] fentaNYL (PF) 1,000 mcg 10.0 In Sodium Chloride 0.9% 80 ml @ 25 MCG/HR 2.5 mls /hr IV .Q24H CANDIDA Rx#: [id number] Intake, IV Titration 3.823 141.437 Amount Norepinephrine 32 mg In 3.823 141.437 Sodium Chloride 0.9% 218 ml @ 0.05 MCG/KG/MIN 2. 445 mls/hr IV .Q24H CANDIDA Rx#:[id number] Output: Urine 30 0 0 Straight 30 Other: Weight 104.326 kg ABP, PAP, CO, CI - Last 8 Hours Arterial Blood Pressure 190/186 Patient is present is intubated, sedated on fentanyl 25 milligram per hour. Pupils are 4 mm, reacting to 3 bilaterally. Oculocephalics are absent. Corneals absent. Patient has mottling over arms and legs. She is on a cooling protocol. Reflexes are absent. No response to painful stimuli partly from being sedated. Results - Laboratory Findings CBC and BMP: 08/31/18 03:20 08/31/18 07:49 Abnormal Lab Findings: Abnormal Labs 08/31/18 08/31/18 08/31/18 02:48 03:08 03:20 WBC MCHC RDW Plt Count Neutrophils # (Manual) Monocytes # (Manual) Myelocytes # (Manual) ABG pH 7.00 L* ABG pCO2 ABG pO2 78 L ABG HCO3 9 L* ABG Total CO2 11 L ABG O2 Saturation 87.3 L Sodium 136 L Potassium 5.2 H Chloride Carbon Dioxide 9 L* BUN 54 H Creatinine 4.76 H Glucose POC Glucose (mg/dL) 106 H Osmolality Plasma Lactic Acid Iron Calcium AST 97 H ALT Alkaline Phosphatase 172 H Troponin I Total Protein Albumin 3.0 L Urine Opiates Screen Ur Barbiturates Screen Ur Amphetamines Screen U Methamphetamines Scrn U Benzodiazepines Scrn Urine Cocaine Screen U Marijuana (THC) Screen 08/31/18 08/31/18 08/31/18 03:20 03:20 03:20 WBC 25.0 H MCHC 29.9 L RDW 16.2 H Plt Count 123 L Neutrophils # (Manual) 21.50 H Monocytes # (Manual) 2.00 H Myelocytes # (Manual) 0.25 H ABG pH ABG pCO2 ABG pO2 ABG HCO3 ABG Total CO2 ABG O2 Saturation Sodium Potassium Chloride Carbon Dioxide BUN Creatinine Glucose POC Glucose (mg/dL) Osmolality Plasma Lactic Acid Iron 9.6 H* Calcium AST ALT Alkaline Phosphatase Troponin I 0.169 H* Total Protein Albumin Urine Opiates Screen Ur Barbiturates Screen Ur Amphetamines Screen U Methamphetamines Scrn U Benzodiazepines Scrn Urine Cocaine Screen U Marijuana (THC) Screen 08/31/18 08/31/18 08/31/18 03:39 04:50 05:24 WBC MCHC RDW Plt Count Neutrophils # (Manual) Monocytes # (Manual) Myelocytes # (Manual) ABG pH ABG pCO2 ABG pO2 ABG HCO3 ABG Total CO2 ABG O2 Saturation Sodium Potassium Chloride Carbon Dioxide BUN Creatinine Glucose POC Glucose (mg/dL) 55 L 60 L Osmolality Plasma Lactic Acid Iron Calcium AST ALT Alkaline Phosphatase Troponin I Total Protein Albumin Urine Opiates Screen Detected H Ur Barbiturates Screen Detected H Ur Amphetamines Screen Detected H U Methamphetamines Scrn Detected H U Benzodiazepines Scrn Detected H Urine Cocaine Screen Detected H U Marijuana (THC) Screen Detected H 08/31/18 08/31/18 08/31/18 05:46 06:02 06:38 WBC MCHC RDW Plt Count Neutrophils # (Manual) Monocytes # (Manual) Myelocytes # (Manual) ABG pH ABG pCO2 ABG pO2 ABG HCO3 ABG Total CO2 ABG O2 Saturation Sodium Potassium Chloride Carbon Dioxide BUN Creatinine Glucose POC Glucose (mg/dL) 171 H 126 H 74 L Osmolality Plasma Lactic Acid Iron Calcium AST ALT Alkaline Phosphatase Troponin I Total Protein Albumin Urine Opiates Screen Ur Barbiturates Screen Ur Amphetamines Screen U Methamphetamines Scrn U Benzodiazepines Scrn Urine Cocaine Screen U Marijuana (THC) Screen 08/31/18 08/31/18 08/31/18 06:56 07:14 07:41 WBC MCHC RDW Plt Count Neutrophils # (Manual) Monocytes # (Manual) Myelocytes # (Manual) ABG pH ABG pCO2 ABG pO2 ABG HCO3 ABG Total CO2 ABG O2 Saturation Sodium Potassium Chloride Carbon Dioxide BUN Creatinine Glucose POC Glucose (mg/dL) 145 H 119 H Osmolality Plasma Lactic Acid Iron 7.3 H* Calcium AST ALT Alkaline Phosphatase Troponin I Total Protein Albumin Urine Opiates Screen Ur Barbiturates Screen Ur Amphetamines Screen U Methamphetamines Scrn U Benzodiazepines Scrn Urine Cocaine Screen U Marijuana (THC) Screen 08/31/18 08/31/18 08/31/18 07:49 08:17 08:33 WBC MCHC RDW Plt Count Neutrophils # (Manual) Monocytes # (Manual) Myelocytes # (Manual) ABG pH ABG pCO2 ABG pO2 ABG HCO3 ABG Total CO2 ABG O2 Saturation Sodium Potassium Chloride 112 H Carbon Dioxide 12 L BUN 54 H Creatinine 4.61 H Glucose 135 H POC Glucose (mg/dL) 23 L 151 H Osmolality Plasma Lactic Acid Iron Calcium 6.9 L AST 507 H ALT 80 H Alkaline Phosphatase 163 H Troponin I Total Protein 5.4 L Albumin 2.3 L Urine Opiates Screen Ur Barbiturates Screen Ur Amphetamines Screen U Methamphetamines Scrn U Benzodiazepines Scrn Urine Cocaine Screen U Marijuana (THC) Screen 08/31/18 08/31/18 08/31/18 09:01 10:07 10:34 WBC MCHC RDW Plt Count Neutrophils # (Manual) Monocytes # (Manual) Myelocytes # (Manual) ABG pH <7.00 L* ABG pCO2 48 H ABG pO2 141 H ABG HCO3 8 L* ABG Total CO2 10 L ABG O2 Saturation 97.2 H Sodium Potassium Chloride Carbon Dioxide BUN Creatinine Glucose POC Glucose (mg/dL) 146 H 107 H Osmolality Plasma Lactic Acid Iorn Calcium AST ALT Alkaline Phosphatase Troponin I Total Protein Albumin Urine Opiates Screen Ur Barbiturates Screen Ur Amphetamines Screen U Methamphetamines Scrn U Benzodiazepines Scrn Urine Cocaine Screen U Marijuana (THC) Screen 08/31/18 08/31/18 08/31/18 11:54 11:56 12:25 WBC MCHC RDW Plt Count Neutrophils # (Manual) Monocytes # (Manual) Myelocytes # (Manual) ABG pH ABG pCO2 ABG pO2 ABG HCO3 ABG Total CO2 ABG O2 Saturation Sodium Potassium Chloride Carbon Dioxide BUN Creatinine Glucose POC Glucose (mg/dL) <20 L 55 L Osmolality Plasma Lactic Acid Iron Calcium AST ALT Alkaline Phosphatase Troponin I 0.234 H* Total Protein Albumin Urine Opiates Screen Ur Barbiturates Screen Ur Amphetamines Screen U Methamphetamines Scrn U Benzodiazepines Scrn Urine Cocaine Screen U Marijuana (THC) Screen 08/31/18 08/31/18 08/31/18 12:33 12:50 13:15 WBC MCHC RDW Plt Count Neutrophils # (Manual) Monocytes # (Manual) Myelocytes # (Manual) ABG pH ABG pCO2 ABG pO2 ABG HCO3 ABG Total CO2 ABG O2 Saturation Sodium Potassium Chloride Carbon Dioxide BUN Creatinine Glucose POC Glucose (mg/dL) 36 L 40 L <20 L Osmolality Plasma Lactic Acid Iron Calcium AST ALT Alkaline Phosphatase Troponin I Total Protein Albumin Urine Opiates Screen Ur Barbiturates Screen Ur Amphetamines Screen U Methamphetamines Scrn U Benzodiazepines Scrn Urine Cocaine Screen U Marijuana (THC) Screen 08/31/18 08/31/18 08/31/18 13:18 13:48 14:01 WBC MCHC RDW Plt Count Neutrophils # (Manual) Monocytes # (Manual) Myelocytes # (Manual) ABG pH ABG pCO2 ABG pO2 ABG HCO3 ABG Total CO2 ABG O2 Saturation Sodium Potassium Chloride Carbon Dioxide BUN Creatinine Glucose POC Glucose (mg/dL) 33 L 28 L 536 H Osmolality Plasma Lactic Acid Iron Calcium AST ALT Alkaline Phosphatase Troponin I Total Protein Albumin Urine Opiates Screen Ur Barbiturates Screen Ur Amphetamines Screen U Methamphetamines Scrn U Benzodiazepines Scrn Urine Cocaine Screen U Marijuana (THC) Screen 08/31/18 08/31/18 08/31/18 14:18 14:55 15:53 WBC MCHC RDW Plt Count Neutrophils # (Manual) Monocytes # (Manual) Myelocytes # (Manual) ABG pH ABG pCO2 ABG pO2 ABG HCO3 ABG Total CO2 ABG O2 Saturation Sodium Potassium Chloride Carbon Dioxide BUN Creatinine Glucose POC Glucose (mg/dL) 471 H 373 H Osmolality 327 H* Plasma Lactic Acid Iron Calcium AST ALT Alkaline Phosphatase Troponin I Total Protein Albumin Urine Opiates Screen Ur Barbiturates Screen Ur Amphetamines Screen U Methamphetamines Scrn U Benzodiazepines Scrn Urine Cocaine Screen U Marijuana (THC) Screen 08/31/18 15:56 WBC MCHC RDW Plt Count Neutrophils # (Manual) Monocytes # (Manual) Myelocytes # (Manual) ABG pH ABG pCO2 ABG pO2 ABG HCO3 ABG Total CO2 ABG O2 Saturation Sodium Potassium Chloride Carbon Dioxide BUN Creatinine Glucose POC Glucose (mg/dL) 301 H Osmolality Plasma Lactic Acid Iron Calcium AST ALT Alkaline Phosphatase Troponin I Total Protein Albumin Urine Opiates Screen Ur Barbiturates Screen Ur Amphetamines Screen U Methamphetamines Scrn U Benzodiazepines Scrn Urine Cocaine Screen U Marijuana (THC) Screen Assessment and Plan Assessment: * Unresponsiveness, with severe encephalopathy, likely from hypoxic and toxic metabolic encephalopathy. Patient currently sedated also. * Status post hypoglycemic state with blood sugar 41. * Polysubstance abuse * Acute septic shock * Ventilator dependent respiratory failure * Acute renal failure * Hepatitis C Plan: We will check EEG in the morning. Repeat computed tomography scan of the head in 24-48 hours to assess for cerebral edema. Patient on cooling protocol and on pressors. Discussed with patient's mother in detail.
[2018-08-31 17:10] VITALS: RESP 26
[2018-08-31 17:37] LABS: Glucose,Whole Blood 213 mg/dL (75-99)
[2018-08-31] MEDS ORDERED: FOMEPIZOLE 1,500 MG in SODIUM CHLORIDE 0.9% 100 ML IVPB ONE (17:45)
[2018-08-31] MEDS ORDERED: SODIUM CHLORIDE 0.9% IVPB ONE (18:00)
[2018-08-31] MEDS ORDERED: FOMEPIZOLE IVPB ONE (18:00)
[2018-08-31 18:28] LABS: Glucose,Whole Blood 175 mg/dL (75-99)
[2018-08-31] MEDS: DEXTROSE 5%-0.45% NACL 1,000 ML with SODIUM BICARB (1 MEQ/ML) 150 ML IV SCH ×4 (18:46→23:20)
[2018-08-31 19:32] LABS: Blood Urea Nitrogen 49 mg/dL (7-17); Calcium 9.3 mg/dL (8.4-10.2); Chloride 111 mmol/L (98-107); Sodium 144 mmol/L (137-145)
[2018-08-31 19:49] LABS: Glucose 33 mg/dL (74-99); Potassium 10.2 mmol/L (3.5-5.1)
[2018-08-31 19:50] LABS: Carbon Dioxide <5 mmol/L (22-30)
[2018-08-31 19:54] LABS: Glucose,Whole Blood 165 mg/dL (75-99)
[2018-08-31 20:29] LABS: Blood Urea Nitrogen 50 mg/dL (7-17); Calcium 9.6 mg/dL (8.4-10.2); Chloride 112 mmol/L (98-107); Sodium 143 mmol/L (137-145)
[2018-08-31 20:37] LABS: Glucose <20 mg/dL (74-99)
[2018-08-31 20:39] LABS: Carbon Dioxide <5 mmol/L (22-30)
[2018-08-31 20:40] LABS: Potassium 11.9 mmol/L (3.5-5.1)
[2018-08-31 20:45] LABS: Glucose,Whole Blood 147 mg/dL (75-99)
[2018-08-31] MEDS ORDERED: CALCIUM GLUCONATE 1 GM in SODIUM CHLORIDE 0.9% 100 ML IVPB ONE (21:00)
[2018-08-31 21:18] LABS: Ethanol Negative (Negative); Isopropanol Negative (Negative)
[2018-08-31] MEDS ORDERED: DEXTROSE 50% SYRINGE 50 ML IVP ONE (22:37)
[2018-09-01] MEDS: PHENYLEPHRINE 40 MG in SODIUM CHLORIDE 0.9% 250 ML IV SCH ×2 (00:05→03:04)
[2018-09-01] MEDS: HYDROCORTISONE SUCCINATE 100 MG/2 ML VIAL IV SCH (00:19)
[2018-09-01 01:07] LABS: Calcium 9.3 mg/dL (8.4-10.2)
[2018-09-01] MEDS ORDERED: DEXTROSE 50% SYRINGE 50 ML IVP ONE ×3 (01:21→03:56)
[2018-09-01] MEDS: DEXTROSE 50% SYRINGE 50 ML IVP PRN (01:25)
[2018-09-01] MEDS ORDERED: CALCIUM GLUCONATE 1 GM in SODIUM CHLORIDE 0.9% 100 ML IVPB ONE (02:29)
[2018-09-01] MEDS: NOREPINEPHRINE 32 MG in SODIUM CHLORIDE 0.9% 218 ML IV SCH (03:59)
[2018-09-01 04:03] VITALS: BP 126/105; PULSE 111; TEMP 98.5
[2018-09-01] MEDS ORDERED: DEXTROSE 10% IN WATER 500 ML in EMPTY BAG 1 BAG IV SCH (04:15)
[2018-09-01] MEDS ORDERED: FOMEPIZOLE IVPB SCH (06:00)
[2018-09-01] MEDS ORDERED: SODIUM CHLORIDE 0.9% IVPB SCH (06:00)
[2018-09-01] MEDS ORDERED: VANCOMYCIN 1,750 MG in SODIUM CHLORIDE 0.9% 500 ML 500 ML IVPB ONE (08:00)
[2018-09-01] MEDS ORDERED: FAMOTIDINE 20 MG/2 ML VIAL IV SCH (09:00)
--- NOTE | 2018-09-01 09:35 | P.DS ---
Providers Date of admission: 08/31/18 05:51 Attending physician: Masoud Valdovinos Consults: 08/31/18 05:47 Consult Physician Routine Consulting Provider: Renato Escudero Consult Reason/Comments: elevated troponin Do you want consulting provider notified?: Yes Consult Physician Stat Consulting Provider: Gio Gregory Consult Reason/Comments: ICU management Do you want consulting provider notified?: Already Contacted Consult Physician Urgent Consulting Provider: Malka Garzon Consult Reason/Comments: Overdose. Altered mental status Do you want consulting provider notified?: Yes 08/31/18 05:53 Consult Physician Routine Consulting Provider: Talya Suarez Consult Reason/Comments: Acute kidney injury Do you want consulting provider notified?: Yes 08/31/18 11:57 Consult Physician Routine Consulting Provider: Malka Garzon Consult Reason/Comments: anoxic brain injury Do you want consulting provider notified?: Yes 08/31/18 18:39 Consult Physician Routine Consulting Provider: Evie Cartwright Consult Reason/Comments: possible aspiration pna, increased lactic. Do you want consulting provider notified?: Yes Primary care physician: Stated None Hospital Course: Patient's clinical condition worsened overnight patient decompensated in spite of being on ventilator patient blood pressure remained unstable in spite of maximizing on 3 pressors in spite of aggressive measures patient rhythm changed to junctional and subsequently cardiac respiratory arrest earlier today morning. Patient was DO NOT RESUSCITATE by that time as per the discussion with the family yesterday. Her overall prognosis was extremely poor patient condition was guarded. Please refer to nursing documentation for exact time of . Cause of : Polysubstance abuse and overdose, sepsis from possible right- sided endocarditis Patient Condition at Discharge: Critical Plan - Discharge Summary Discharge Rx Participant: No New Discharge Prescriptions: No Action Gabapentin [Neurontin] 800 mg PO TID Albuterol Inhaler [Ventolin Hfa Inhaler] 2 puff INHALATION RT-Q4H PRN PRN Reason: Shortness Of Breath Butalbital/Aspirin/Caffeine [Fiorinal 50-325-40 MG] 1 cap PO Q6H PRN PRN Reason: Migraine Headache Ibuprofen [Motrin] 800 mg PO TID PRN PRN Reason: Pain Lisinopril [Prinivil] 5 mg PO DAILY tiZANidine HCL [Zanaflex] 2 mg PO TID PRN PRN Reason: Muscle Spasm Discharge Medication List Albuterol Inhaler [Ventolin Hfa Inhaler] 2 puff INHALATION RT-Q4H PRN 08/31/18 [ History] Butalbital/Aspirin/Caffeine [Fiorinal 50-325-40 MG] 1 cap PO Q6H PRN 08/31/18 [History] Gabapentin [Neurontin] 800 mg PO TID 08/31/18 [History] Ibuprofen [Motrin] 800 mg PO TID PRN 08/31/18 [History] Lisinopril [Prinivil] 5 mg PO DAILY 08/31/18 [History] tiZANidine HCL [Zanaflex] 2 mg PO TID PRN 08/31/18 [History] Follow up Appointment(s)/Referral(s): None,Stated [Primary Care Provider] - 1-2 days
[2018-09-02] MEDS ORDERED: LEVOFLOXACIN 250MG-D5W PMX 250 MG in DEXTROSE/WATER 1 50ML.BAG IVPB SCH (06:00)
== END 2018-09-01 04:55 | disposition expired | DRG 917 ==
LOC: EC 02:45 → 2SICU 05:51
PROVIDERS: ADMIT Hospitalist; ATTEND Hospitalist
PROC: 06HN33Z Insertion of Infusion Device into Left Femoral Vein, Percutaneous Approach (ICD-10-PCS; principal; 2018-08-31)
PROC: 5A1945Z Respiratory Ventilation, 24-96 Consecutive Hours (ICD-10-PCS; 2018-08-31)
DX: T50.901A Poisoning by unspecified drugs, medicaments and biological substances, accidental (unintentional), initial encounter (principal); N17.0 Acute kidney failure with tubular necrosis; J96.01 Acute respiratory failure with hypoxia; A41.9 Sepsis, unspecified organism; R65.21 Severe sepsis with septic shock; I33.0 Acute and subacute infective endocarditis; I21.4 Non-ST elevation (NSTEMI) myocardial infarction; J69.0 Pneumonitis due to inhalation of food and vomit; G92 Toxic encephalopathy; K72.00 Acute and subacute hepatic failure without coma; R40.2312 Coma scale, best motor response, none, at arrival to emergency department; R40.2112 Coma scale, eyes open, never, at arrival to emergency department; R40.2212 Coma scale, best verbal response, none, at arrival to emergency department; E87.2 Acidosis; G93.1 Anoxic brain damage, not elsewhere classified; J98.11 Atelectasis; Z66 Do not resuscitate; Z51.5 Encounter for palliative care; J44.9 Chronic obstructive pulmonary disease, unspecified; I07.9 Rheumatic tricuspid valve disease, unspecified; I46.9 Cardiac arrest, cause unspecified; F11.90 Opioid use, unspecified, uncomplicated; E86.1 Hypovolemia; E16.2 Hypoglycemia, unspecified; G43.909 Migraine, unspecified, not intractable, without status migrainosus; M79.7 Fibromyalgia; M54.9 Dorsalgia, unspecified; G89.29 Other chronic pain; F90.9 Attention-deficit hyperactivity disorder, unspecified type; F41.0 Panic disorder [episodic paroxysmal anxiety]; F32.9 Major depressive disorder, single episode, unspecified; K58.9 Irritable bowel syndrome, unspecified; F17.200 Nicotine dependence, unspecified, uncomplicated; Z71.6 Tobacco abuse counseling; B19.20 Unspecified viral hepatitis C without hepatic coma; Z91.5 Personal history of self-harm; Z79.899 Other long term (current) drug therapy; Z87.442 Personal history of urinary calculi; Z86.14 Personal history of Methicillin resistant Staphylococcus aureus infection; Z90.49 Acquired absence of other specified parts of digestive tract; Z98.51 Tubal ligation status; Z88.5 Allergy status to narcotic agent; Z88.0 Allergy status to penicillin; Y92.009 Unspecified place in unspecified non-institutional (private) residence as the place of occurrence of the external cause; Z80.9 Family history of malignant neoplasm, unspecified; Z82.49 Family history of ischemic heart disease and other diseases of the circulatory system; Z81.1 Family history of alcohol abuse and dependence
CPT/HCPCS: 36415; 36556; 36600; 70450; 71045; 80048; 80053; 80306; 80320; 80329; 81025; 82805; 83605; 83735; 83930; 84484; 84600; 85025; 87070; 87205; 93005; 93306; 94002; 94003; 96361; 96365; 96366; 96368; 96375; 96376; 99291